=== PATIENT | female | born 1990 | race Caucasian/White ===

== ENCOUNTER 2016-07-05 18:39 | Emergency (ER) | payer SELFPAY ==
[2016-07-05 19:35] VITALS: BP 142/81; PULSE 67; RESP 18; TEMP 98.1
[2016-07-05] MEDS ORDERED: PENICILLIN VK 500MG STARTER 4 TAB BTL PO STA (20:04)
[2016-07-05] MEDS ORDERED: BUPIVACAINE (PF) 0.5% 30 ML VIAL SQ STA (20:04)
[2016-07-05] MEDS ORDERED: ACET/COD 300 MG/30 MG STARTER PACK 6 TAB BTL PO STA (20:04)
--- NOTE | 2016-07-05 20:05 | ED ---
ENT HPI - General Chief complaint: Dental/Oral Stated complaint: Tooth pain Time Seen by Provider: 07/05/16 19:55 Source: patient, RN notes reviewed, old records reviewed Mode of arrival: ambulatory Limitations: no limitations - History of Present Illness Initial comments: is a 18-year-old feel a chief complaint of left upper molar dental pain for approximately 3 days. Patient reports the pain is unbearable. She states that she recently switched insurance and is currently searching for a dentist. She states that she has noticed some swelling in feels like some irritation around the gum around the back molar. She is able to open and close her mouth. Patient denies any recent fever, chills, shortness of breath, chest pain, back pain, abdominal pain, nausea vomiting, numbness or tingling, dysuria or hematuria, constipation or diarrhea, headaches or visual changes, or any other current symptoms - Related Data Home Medications Medication Instructions Recorded Confirmed Citalopram Hydrobromide [CeleXA] 40 mg PO DAILY 03/02/16 07/05/16 Ranitidine HCl [Zantac] 150 mg PO BID 03/02/16 07/05/16 ALPRAZolam [Xanax] 0.25 mg PO DAILY PRN 07/05/16 07/05/16 Lisinopril [Zestril] 2.5 mg PO DAILY 07/05/16 07/05/16 Previous Rx's Medication Instructions Recorded Acetaminophen-Codeine 300-30mg 1 tab PO Q4H PRN #20 tablet 03/02/16 [Tylenol #3] Acetaminophen-Codeine 300-30mg 1 tab PO Q6H PRN #12 tablet 07/05/16 [Tylenol #3] Penicillin V Potassium [Pen Vee K] 500 mg PO QID #40 tab 07/05/16 Allergies Allergy/AdvReac Type Severity Reaction Status Date / Time No Known Allergies Allergy Verified 07/05/16 20:26 Review of Systems ROS Statement: Those systems with pertinent positive or pertinent negative responses have been documented in the HPI. ROS Other: All systems not noted in ROS Statement are negative. Past Medical History Past Medical History: GERD/Reflux Additional Past Medical History / Comment(s): PCOS History of Any Multi-Drug Resistant Organisms: None Reported Past Surgical History: No Surgical Hx Reported Past Psychological History: Depression Smoking Status: Current every day smoker Past Alcohol Use History: Occasional Past Drug Use History: None Reported General Exam Limitations: no limitations General appearance: alert, in no apparent distress Head exam: Present: atraumatic, normocephalic, normal inspection Eye exam: Present: normal appearance, PERRL, EOMI. Absent: scleral icterus, conjunctival injection, periorbital swelling ENT exam: Present: normal exam, normal oropharynx (Irritation around tooth #15.) , mucous membranes moist Neck exam: Present: normal inspection. Absent: tenderness, meningismus, lymphadenopathy Respiratory exam: Present: normal lung sounds bilaterally. Absent: respiratory distress, wheezes, rales, rhonchi, stridor Cardiovascular Exam: Present: regular rate, normal rhythm, normal heart sounds. Absent: systolic murmur, diastolic murmur, rubs, gallop, clicks GI/Abdominal exam: Present: soft, normal bowel sounds. Absent: distended, tenderness, guarding, rebound, rigid Extremities exam: Present: normal inspection, full ROM, normal capillary refill. Absent: tenderness, pedal edema, joint swelling, calf tenderness Back exam: Present: normal inspection Neurological exam: Present: alert, oriented X3, CN II-XII intact Psychiatric exam: Present: normal affect, normal mood Skin exam: Present: warm, dry, intact, normal color. Absent: rash Course Vital Signs 07/05/16 19:32 Temperature 98.1 F Pulse Rate 67 Respiratory 18 Rate Blood Pressure 142/81 O2 Sat by Pulse 97 Oximetry Procedures - Nerve Block Consent Obtained: verbal consent Local Anesthetic Used: Marcaine 0.5% Side: left Intraoral Nerve Block: superior alveolar Procedure Successful: Yes Complications: none Patient Tolerated Procedure: well, no complications Medical Decision Making - Medical Decision Making Patient is a 26 ear old female with chief complaint of left upper molar pain for 3 days. Patient shows signs of irritation around tooth 15, no signs of abscess. Patient will be placed on pen v k, and tylenol 3. Patient understands she needs to follow up with dentist. Patient given dental clinic instructions. Patient understands treatment plan and will comply. Patient given starter pack of both pain medicine and antibiotic. Disposition Clinical Impression: Pain, dental Disposition: HOME SELF-CARE Condition: Good Instructions: Toothache (ED) Additional Instructions: [facility] [address], [place] [address] [phone] (existing clients only) For new clients: [phone] 1st consult: $50 (includes Xrays) Usually 30% less then private dentist for visits after. [employer] Have to pay $50 for Xrays anmd rest is covered. [phone] Prescriptions: Acetaminophen-Codeine 300-30mg [Tylenol #3] 1 tab PO Q6H PRN #12 tablet PRN Reason: Pain Penicillin V Potassium [Pen Vee K] 500 mg PO QID #40 tab Referrals: Susan Palacios III, MD [Primary Care Provider] - 1-2 days Time of Disposition: 20:30
== END 2016-07-05 20:38 | disposition home or self-care (01) ==
LOC: EC 18:39
DX: K08.89 Other specified disorders of teeth and supporting structures (principal); K21.9 Gastro-esophageal reflux disease without esophagitis; F32.9 Major depressive disorder, single episode, unspecified; F17.200 Nicotine dependence, unspecified, uncomplicated; Z79.899 Other long term (current) drug therapy
CPT/HCPCS: 64400; 99283

== ENCOUNTER → 2017-09-28 | Outpatient (CLI) | payer OTHER | END | disposition home or self-care (01) | LOC: RADUSWWP 16:09 | PROVIDERS: ATTEND Obstetrics & Gynecology | DX: R10.2 Pelvic and perineal pain (principal); Z53.9 Procedure and treatment not carried out, unspecified reason ==

== ENCOUNTER → 2017-10-05 | Outpatient (CLI) | payer OTHER ==
--- NOTE | 2017-10-06 08:50 | US ---
EXAMINATION TYPE: US pelvic complete DATE OF EXAM: 10/05/2017 COMPARISON: NONE CLINICAL HISTORY: R10.2 PELVIC PAIN. Bilateral pelvic pain x 3 months, irregular cycles, PCOS, TECHNIQUE: TA. Transabdominal sonographic images of the pelvis were acquired. Date of LMP: 3 months ago EXAM MEASUREMENTS: Uterus: 6.3 x 4.2 x 3.4 cm Endometrial Stripe: 0.6 cm Right Ovary: 4.1 x 1.8 x 2.0 cm Left Ovary: 3.3 x 2.0 x 2.0 cm large body habitus limits exam 1. Uterus: Anteverted wnl 2. Endometrium: wnl 3. Right Ovary: wnl 4. Left Ovary: wnl 5. Bilateral Adnexa: wnl 6. Posterior cul-de-sac: wnl Urinary bladder appears unremarkable. IMPRESSION: 1. Unremarkable pelvic ultrasound.
== END | disposition home or self-care (01) ==
LOC: RADUSWWP 16:00
PROVIDERS: ATTEND Obstetrics & Gynecology
DX: N91.2 Amenorrhea, unspecified (principal); R10.2 Pelvic and perineal pain
CPT/HCPCS: 76856

== ENCOUNTER 2017-12-04 08:40 | Observation (INO) | payer OTHER ==
[2017-12-04] MEDS ORDERED: methylPREDNISolone SOD SUCCI 125 MG/2 ML VIAL IV STA (08:50)
[2017-12-04] MEDS ORDERED: IPRATROPIUM-ALBUTEROL 3 ML NEB INHALATION STA (08:50)
--- NOTE | 2017-12-04 08:52 | ED ---
SOB HPI - General Source: patient, RN notes reviewed Mode of arrival: ambulatory Limitations: no limitations <Johan Chavez - Last Filed: 12/04/17 10:12> <Evens Rodríguez - Last Filed: 12/04/17 10:40> - General Chief Complaint: Shortness of Breath Stated Complaint: Diff Breathing Time Seen by Provider: 12/04/17 08:45 - History of Present Illness Initial Comments: This is a 27-year-old female presents emergency Department chief complaint of shortness of breath. Patient states this has been going on for several weeks she was initially seen at [facility] urgent care is given Augmentin and albuterol treatments. She states initially was getting better but now has gotten worse with a productive cough and shortness of breath. She states that she has been wheezing at home. Patient is a smoker but states she has not smoked in a while because of her shortness of breath. She denies any long distance traveling no leg pain no leg swelling. She states she has had a large amount nasal congestion which is worsened by going to a local fair. Patient denies any sick contacts has normal drug ALLERGIES. No history of lung disease. (Johan Chavez) - Related Data Home Medications Medication Instructions Recorded Confirmed Citalopram Hydrobromide [CeleXA] 40 mg PO DAILY 03/02/16 12/04/17 Lisinopril [Zestril] 2.5 mg PO DAILY 07/05/16 12/04/17 Albuterol Nebulized [Ventolin 2.5 mg INHALATION RT-QID PRN 12/04/17 12/04/17 Nebulized] D-Methorphan/PE/Acetaminophen 2 cap PO Q6H PRN 12/04/17 12/04/17 [Vicks Dayquil Liquicaps] Phentermine HCl [Adipex-P] 37.5 mg PO QAM 12/04/17 12/04/17 Allergies Allergy/AdvReac Type Severity Reaction Status Date / Time No Known Allergies Allergy Verified 12/04/17 09:01 Review of Systems ROS Other: All systems not noted in ROS Statement are negative. <Johan Chavez - Last Filed: 12/04/17 10:12> ROS Other: All systems not noted in ROS Statement are negative. <Evens Rodríguez - Last Filed: 12/04/17 10:40> ROS Statement: Those systems with pertinent positive or pertinent negative responses have been documented in the HPI. Past Medical History Past Medical History: GERD/Reflux Additional Past Medical History / Comment(s): PCOS History of Any Multi-Drug Resistant Organisms: None Reported Past Surgical History: No Surgical Hx Reported Additional Past Surgical History / Comment(s): wisdom teeth removal Past Psychological History: Depression Smoking Status: Current every day smoker Past Alcohol Use History: Occasional Past Drug Use History: None Reported <Johan Chavez - Last Filed: 12/04/17 10:12> General Exam Limitations: no limitations General appearance: alert, in no apparent distress Head exam: Present: atraumatic, normocephalic, normal inspection Eye exam: Present: normal appearance, PERRL, EOMI. Absent: scleral icterus, conjunctival injection, periorbital swelling ENT exam: Present: normal exam, normal oropharynx, mucous membranes moist, TM's normal bilaterally, normal external ear exam Neck exam: Present: normal inspection. Absent: tenderness, meningismus, lymphadenopathy Respiratory exam: Present: wheezes, rhonchi. Absent: normal lung sounds bilaterally, respiratory distress, rales, stridor Cardiovascular Exam: Present: regular rate, normal rhythm, normal heart sounds. Absent: systolic murmur, diastolic murmur, rubs, gallop, clicks Neurological exam: Present: alert, oriented X3, CN II-XII intact Skin exam: Present: warm, dry, intact, normal color. Absent: rash <Johan Chavez - Last Filed: 12/04/17 10:12> Course <Johan Chavez - Last Filed: 12/04/17 10:12> <Evens Rodríguez - Last Filed: 12/04/17 10:40> Vital Signs 12/04/17 12/04/17 12/04/17 08:42 08:49 09:33 Temperature 98.5 F Pulse Rate 104 H 80 Respiratory 20 18 Rate Blood Pressure 149/102 O2 Sat by Pulse 94 L Oximetry 12/04/17 09:46 Temperature Pulse Rate 86 Respiratory Rate Blood Pressure O2 Sat by Pulse Oximetry - Reevaluation(s) Reevaluation #1: 12/04/17 10:39 I personally saw and examined the patient and reviewed and agree with the PA findings including all diagnostic interpretations and treatment plans is written was otherwise stated. She did demonstrate evidence of diffuse wheezing she's been having difficulty breathing for past several weeks. She was on antibiotics and locations. I did discuss case with Dr. Franks. Patient be admitted for inpatient treatment. Additionally the patient is a smoker she has smoked about one half pack per day headache ulcer on the need to quit smoking. The entire encounter lasting 4.5 minutes. (Evens Rodríguez) Medical Decision Making - Lab Data Result diagrams: 12/04/17 09:00 12/04/17 09:00 <Johan Chavez - Last Filed: 12/04/17 10:12> - Lab Data Result diagrams: 12/04/17 09:00 12/04/17 09:00 <Evens Rodríguez - Last Filed: 12/04/17 10:40> - Lab Data Lab Results 12/04/17 12/04/17 Range/Units 09:00 09:00 WBC 13.0 H (3.8-10.6) k/uL RBC 4.87 (3.80-5.40) m/uL Hgb 14.0 (11.4-16.0) gm/dL Hct 43.3 (34.0-46.0) % MCV 89.0 (80.0-100.0) fL MCH 28.8 (25.0-35.0) pg MCHC 32.4 (31.0-37.0) g/dL RDW 14.4 (11.5-15.5) % Plt Count 300 (150-450) k/uL Neutrophils % 69 % Lymphocytes % 15 % Monocytes % 6 % Eosinophils % 9 % Basophils % 0 % Neutrophils # 8.9 H (1.3-7.7) k/uL Lymphocytes # 1.9 (1.0-4.8) k/uL Monocytes # 0.8 (0-1.0) k/uL Eosinophils # 1.1 H (0-0.7) k/uL Basophils # 0.1 (0-0.2) k/uL Sodium 140 (137-145) mmol/L Potassium 4.3 (3.5-5.1) mmol/L Chloride 106 (98-107) mmol/L Carbon Dioxide 24 (22-30) mmol/L Anion Gap 10 mmol/L BUN 7 (7-17) mg/dL Creatinine 0.54 (0.52-1.04) mg/dL Est GFR (CKD-EPI)AfAm >90 (>60 ml/min/1.73 sqM) Est GFR (CKD-EPI)NonAf >90 (>60 ml/min/1.73 sqM) Glucose 118 H (74-99) mg/dL Calcium 9.4 (8.4-10.2) mg/dL Disposition <Johan Chavez - Last Filed: 12/04/17 10:12> <Evens Rodríguez - Last Filed: 12/04/17 10:40> Clinical Impression: Dyspnea, Acute bronchitis with bronchospasm, Failure of outpatient treatment Disposition: ADMITTED IP TO THIS HOSP Condition: Stable Referrals: Susan Palacios III, MD [Primary Care Provider] - 1-2 days
[2017-12-04 09:22] LABS: Basophils # (A) 0.1 k/uL (0-0.2); Basophils % (A) 0 %; Eosinophils # (A) 1.1 k/uL (0-0.7); Eosinophils % (A) 9 %; HCT 43.3 % (34.0-46.0); Lymphocytes # (A) 1.9 k/uL (1.0-4.8); Lymphocytes % (A) 15 %; MCH 28.8 pg (25.0-35.0); MCHC 32.4 g/dL (31.0-37.0); Mean Platelet Volume 7.3; Monocytes # (A) 0.8 k/uL (0-1.0); Monocytes % (A) 6 %; Neutrophils # (A) 8.9 k/uL (1.3-7.7); Neutrophils % (A) 69 %; Platelet Count 300 k/uL (150-450); RBC 4.87 m/uL (3.80-5.40); RDW 14.4 % (11.5-15.5)
[2017-12-04 09:29] LABS: Anion Gap 10 mmol/L; Blood Urea Nitrogen 7 mg/dL (7-17); Calcium 9.4 mg/dL (8.4-10.2); Carbon Dioxide 24 mmol/L (22-30); Chloride 106 mmol/L (98-107); Glucose 118 mg/dL (74-99); Potassium 4.3 mmol/L (3.5-5.1); Sodium 140 mmol/L (137-145)
--- NOTE | 2017-12-04 09:32 | XR ---
EXAMINATION TYPE: XR chest 2V DATE OF EXAM: 12/04/2017 COMPARISON: 03/02/2016 HISTORY: 27-year-old female cough/pain TECHNIQUE: PA and lateral views FINDINGS: The cardiomediastinal silhouette, aorta, and pulmonary vasculature are within normal limits. Mild per ibronchial cuffing is noted. No consolidation or pleural effusion. IMPRESSION: Peribronchial cuffing could represent bronchitis or asthma. Otherwise, no focal infiltrate.
[2017-12-04] MEDS ORDERED: cefTRIAXone IN SWFI 1,000 MG/10 ML SYRINGE IVP STA (10:16)
[2017-12-04] MEDS ORDERED: IPRATROPIUM-ALBUTEROL 3 ML NEB INHALATION PRN ×2 (10:16→13:40)
[2017-12-04] MEDS ORDERED: AZITHROMYCIN 500 MG in DEXTROSE 5% IN WATER 250 ML IVPB STA ×2 (10:16)
[2017-12-04] MEDS ORDERED: guaiFENesin SYRUP 100MG/5ML 200 MG/10 ML CUP PO PRN (13:35)
[2017-12-04] MEDS: IPRATROPIUM-ALBUTEROL 3 ML NEB INHALATION SCH ×2 (15:33→21:31)
[2017-12-04] MEDS: methylPREDNISolone SOD SUCCI 125 MG/2 ML VIAL IV SCH (16:12)
[2017-12-04] MEDS ORDERED: INSULIN ASPART 100 UNIT/ML 1 ML 10 ML VIAL SQ SCH (17:30)
[2017-12-04 17:37] LABS: Glucose,Whole Blood 188 mg/dL (75-99)
[2017-12-04] MEDS: ACETAMINOPHEN TAB 500 MG TAB PO PRN (18:10)
[2017-12-04] MEDS: INSULIN ASPART 100 UNIT/ML 1 ML 10 ML VIAL SQ SCH ×2 (18:11→21:19)
[2017-12-04] MEDS: FAMOTIDINE 20 MG TAB PO SCH (18:37)
[2017-12-04] MEDS ORDERED: TEMAZEPAM 15 MG CAP PO PRN (19:52)
[2017-12-04] MEDS ORDERED: ALPRAZolam 0.25 MG TAB PO PRN (19:52)
[2017-12-04] MEDS ORDERED: ACETAMINOPHEN PO PRN (19:53)
[2017-12-04] MEDS ORDERED: [UNRECOGNIZED DRUG - OTHER] PO PRN (19:53)
[2017-12-04] MEDS ORDERED: D METHORPHAN PO PRN (19:53)
[2017-12-04 21:08] LABS: Glucose,Whole Blood 228 mg/dL (75-99)
[2017-12-04] MEDS: HEPARIN SODIUM,PORCINE 5,000 UNIT/ML 1 ML VIAL SQ SCH (21:19)
[2017-12-04] MEDS: NICOTINE 14MG/24HR PATCH TRANSDERM SCH (21:19)
[2017-12-04] MEDS: SYMBICORT 160-4.5 MCG INHALER INHALATION SCH (21:31)
--- NOTE | 2017-12-04 21:58 | HP ---
HISTORY AND PHYSICAL CHIEF COMPLAINT: Shortness of breath and cough. HISTORY OF PRESENT ILLNESS: This 27-year-old woman with a past medical history of chronic bronchial asthma, GERD, being followed by Dr. Palacios in the outpatient setting was complaining of shortness of breath. The patient had shortness of breath for several days and the patient also taking antibiotics recently. Because of lack of improvement, the patient came to [facility] and admitted for further evaluation and treatment. The patient is also wheezing at home. In the ER, WBC elevated up to 11.3 and chest x-ray showed no evidence of any acute pneumonia, but bronchial cuffing was noted. There is no history of any fever, rigors or chills. No history of headache, loss of consciousness, seizures. PAST MEDICAL HISTORY: Bronchial asthma, history of GERD, history of polycystic ovarian syndrome. MEDICATIONS: Prior to admission include home medications are: 1. Zantac 150 mg p.o. b.i.d. 2. Adipex 37.5 mg p.o. q.h.s. 3. Zestril 2.5 mg p.o. daily. 4. Vicks 2 capsules q.6h p.r.n. 5. Celexa 40 mg p.o. daily. 6. Ventolin 2.5 q.i.d. p.r.n. ALLERGIES: None. FAMILY HISTORY: History of hypertension, borderline diabetes mellitus. SOCIAL HISTORY: History of smoking. No history of alcohol intake. REVIEW OF SYSTEMS: ENT: No diminished hearing or vision. CARDIOVASCULAR: No angina or palpitations. RESPIRATORY: As mentioned earlier. GI: No nausea or vomiting. : No dysuria or hematuria. Central nervous system: No numbness or weakness. ALLERGY/IMMUNOLOGY: As mentioned earlier. Musculoskeletal: As mentioned earlier. HEMATOLOGY/ONCOLOGY: No history or anemia. Endocrine: No history of diabetes or hypothyroidism. CONSTITUTIONAL: As mentioned earlier. Dermatology: Negative. Rheumatology: Negative. Psychiatry: As mentioned earlier. PHYSICAL EXAM: Alert and oriented times three. Pulse is 110, blood pressure 176/77, respiration 20, temperature 99.1, pulse ox 98% on 2 L. HEENT: Conjunctivae normal. Oral mucosa moist. Neck is no jugular venous distention. No carotid bruit. No lymph node enlargement. CARDIOVASCULAR: S1, S2. RESPIRATORY: Breath sounds diminished in the bases. Bilateral scattered rhonchi and crackles. ABDOMEN: Soft, nontender. No mass palpable. Legs no edema and no swelling. NERVOUS SYSTEM: Higher functions as mentioned earlier. Moves all four extremities. No focal motor or sensory deficits. Lymphatics: No lymph nodes palpable in the neck , axillae or groin. Skin: No ulcer, no rash. No bleeding. LABS: WBC 13.3, hemoglobin is 14. ASSESSMENT: 1. Acute bronchial asthma, acute exacerbation with acute purulent tracheobronchitis with failure of outpatient treatment. 2. Gastroesophageal reflux disease. 3. Polycystic ovarian syndrome. 4. Depression. 5. History of nicotine dependence. RECOMMENDATIONS AND DISCUSSION: In this 27-year-old woman who presented with multiple medical issues, at this time, I recommend to continue current medications, management, continue broad-spectrum IV antibiotics. I would also recommend IV steroids and monitor blood sugars closely. I would also recommend consultation with Dr. Miguel A pretty from [facility]. Prognosis guarded because of multiple complex medical issues. Further recommendations to follow. See orders for details. MMODL / IJN: [id number] / [id number]
[2017-12-05] MEDS: methylPREDNISolone SOD SUCCI 125 MG/2 ML VIAL IV SCH ×2 (00:49→07:47)
[2017-12-05] MEDS: ACETAMINOPHEN TAB 500 MG TAB PO PRN (00:53)
[2017-12-05 01:13] LABS: Hemoglobin A1C 6.2 % (4.0-6.0)
[2017-12-05 05:58] VITALS: BP 113/60; RESP 15; TEMP 96.8
[2017-12-05] MEDS: SYMBICORT 160-4.5 MCG INHALER INHALATION SCH (07:16)
[2017-12-05] MEDS: IPRATROPIUM-ALBUTEROL 3 ML NEB INHALATION SCH ×2 (07:16→11:33)
[2017-12-05] MEDS ORDERED: PANTOPRAZOLE 40 MG TABLET PO SCH (07:30)
[2017-12-05 07:31] LABS: Glucose,Whole Blood 165 mg/dL (75-99)
[2017-12-05] MEDS: INSULIN ASPART 100 UNIT/ML 1 ML 10 ML VIAL SQ SCH ×2 (07:46→12:25)
[2017-12-05] MEDS: HEPARIN SODIUM,PORCINE 5,000 UNIT/ML 1 ML VIAL SQ SCH (07:47)
[2017-12-05] MEDS: FAMOTIDINE 20 MG TAB PO SCH (07:48)
[2017-12-05] MEDS: NICOTINE 14MG/24HR PATCH TRANSDERM SCH (07:49)
[2017-12-05] MEDS ORDERED: cefTRIAXone IN SWFI 1,000 MG/10 ML SYRINGE IVP SCH (09:00)
[2017-12-05] MEDS ORDERED: Phentermine Hcl [Adipex-P] PO SCH (09:00)
[2017-12-05] MEDS ORDERED: AZITHROMYCIN 500 MG TAB PO SCH (09:00)
[2017-12-05] MEDS ORDERED: CITALOPRAM HYDROBROMIDE 20 MG TAB PO SCH (09:00)
[2017-12-05] MEDS ORDERED: LISINOPRIL 2.5 MG TAB PO SCH (09:00)
[2017-12-05 09:46] LABS: Anion Gap 12 mmol/L; Blood Urea Nitrogen 8 mg/dL (7-17); Calcium 9.7 mg/dL (8.4-10.2); Carbon Dioxide 20 mmol/L (22-30); Chloride 107 mmol/L (98-107); Glucose 218 mg/dL (74-99); Potassium 4.4 mmol/L (3.5-5.1); Sodium 139 mmol/L (137-145)
[2017-12-05 11:04] LABS: Basophils % (A) 0 %; Eosinophils % (A) 0 %; HCT 43.8 % (34.0-46.0); HGB 14.1 gm/dL (11.4-16.0); Lymphocytes % (A) 8 %; MCH 29.8 pg (25.0-35.0); MCHC 32.3 g/dL (31.0-37.0); MCV 92.4 fL (80.0-100.0); Mean Platelet Volume 7.8; Monocytes # (A) 0.8 k/uL (0-1.0); Monocytes % (A) 3 %; Neutrophils % (A) 89 %; Platelet Count 292 k/uL (150-450); RBC 4.74 m/uL (3.80-5.40); RDW 14.6 % (11.5-15.5)
[2017-12-05 11:06] LABS: WBC 25.9 k/uL (3.8-10.6)
[2017-12-05 11:37] VITALS: PULSE 92
[2017-12-05 11:55] LABS: Glucose,Whole Blood 240 mg/dL (75-99)
[2017-12-05] MEDS ORDERED: methylPREDNISolone ACETATE 80 MG/ML 1 ML VIAL IM STA (12:24)
--- NOTE | 2017-12-05 13:07 | P.CNPUL ---
History of Present Illness Consult date: 12/05/17 Requesting physician: Ernesto Becerra Reason for consult: cough History of present illness: Manasa is a 27-year-old white female patient of Dr. Palacios, presented to the emergency department on 12/04/2017 for evaluation of shortness of breath, wheezing, and persistent cough. Patient had upper respiratory infection 3 weeks ago, and is treating on outpatient basis initially at an urgent clinic, [facility], with a course of oral Augmentin and albuterol treatments. Her symptoms initially got better, patient still has a persistent cough, shortness of breath, wheezing. Patient is a current smoker, however has not smoked since the onset of her symptoms. The medical history includes hypertension, GERD/ reflux, depression, PCOS. Denies history of chronic lung disease, denies history of asthma. Chest x-ray was completed and showed her bronchial cuffing representing bronchitis. No focal infiltrate. Patient has been afebrile, she is on supplemental oxygen, room air pulse ox is 94%, slightly tachycardic at times, in the low 100s BPM. Hemodynamically stable. On presentation lab work showed mild leukocytosis, WBC of 13.0, hemoglobin of 14.0, electrolytes and renal profile within normal limits. Today's labs show increase of WBC 25.9, likely related to initiation of IV steroids. Patient denies any fever or chills , reports breathing easier, less bronchospastic, exam reveals diffuse wheezes, however this is reportedly improved from her admission. Was placed on empiric antibiotics in the form of Zithromax and Rocephin, she is on Symbicort, and Robitussin cough syrup. She is on nebulized bronchodilators, and nicotine patch. She reports feeling better today, she has a small child and she would like to go home to continue recovering at home. From our standpoint patient is stable for discharge home on outpatient course of prednisone starting at 50 mg, we will stop the antibiotics, will provide the patient with Ventolin inhaler, she has nebulized treatments at home. Patient was advised to follow-up on as- needed basis with Dr. Grady. Review of Systems All systems: negative Constitutional: Denies chills, Denies fever Eyes: denies blurred vision, denies pain Ears, nose, mouth and throat: Denies headache, Denies sore throat Cardiovascular: Denies chest pain, Denies shortness of breath Respiratory: Reports cough with sputum, Reports dyspnea, Reports wheezing, Denies cough Gastrointestinal: Denies abdominal pain, Denies diarrhea, Denies nausea, Denies vomiting Genitourinary: Denies dysuria, Denies hematuria Musculoskeletal: Denies myalgias Integumentary: Denies pruritus, Denies rash Neurological: Denies numbness, Denies weakness Psychiatric: Denies anxiety, Denies depression Endocrine: Denies fatigue, Denies weight change Past Medical History Past Medical History: GERD/Reflux Additional Past Medical History / Comment(s): PCOS, pne vaccine in past not sure of date- unable to verify date a time of admit History of Any Multi-Drug Resistant Organisms: None Reported Past Surgical History: No Surgical Hx Reported Additional Past Surgical History / Comment(s): wisdom teeth removal Past Anesthesia/Blood Transfusion Reactions: No Reported Reaction Additional Past Anesthesia/Blood Transfusion Reaction / Comment(s): clausterphobia Smoking Status: Current every day smoker - Past Family History Father Family Medical History: Hypertension Mother Family Medical History: Hypertension Additional Family Medical History / Comment(s): boarderline dm Medications and Allergies Home Medications Medication Instructions Recorded Confirmed Type Citalopram Hydrobromide [CeleXA] 40 mg PO DAILY 03/02/16 12/04/17 History Lisinopril [Zestril] 2.5 mg PO DAILY 07/05/16 12/04/17 History Albuterol Nebulized [Ventolin 2.5 mg INHALATION RT-QID PRN 12/04/17 12/04/17 History Nebulized] D-Methorphan/PE/Acetaminophen 2 cap PO Q6H PRN 12/04/17 12/04/17 History [Vicks Dayquil Liquicaps] Phentermine HCl [Adipex-P] 37.5 mg PO QAM 12/04/17 12/04/17 History Ranitidine HCl [Zantac] 150 mg PO BID 12/04/17 12/04/17 History Albuterol Inhaler [Ventolin Hfa 1 - 2 puff INHALATION RT-Q6H PRN 12/05/17 Rx Inhaler] 30 Days #1 inhaler predniSONE 10 mg PO DAILY 20 Days #44 tab 12/05/17 Rx Allergies Allergy/AdvReac Type Severity Reaction Status Date / Time No Known Allergies Allergy Verified 12/04/17 09:01 Physical Exam Vitals: Vital Signs Temp Pulse Pulse Resp BP BP Pulse Ox 12/05/17 11:47 92 12/05/17 11:33 92 12/05/17 07:29 80 12/05/17 07:16 80 12/05/17 05:57 96.8 F L 80 15 113/60 92 L 12/04/17 23:00 97.1 F L 89 18 136/77 93 L 12/04/17 21:42 96 12/04/17 21:32 90 12/04/17 16:30 110 H 12/04/17 15:35 99.1 F 110 H 20 176/77 90 L 12/04/17 15:00 98.2 F 102 H 20 153/78 93 L 12/04/17 13:48 110 H 12/04/17 13:37 106 H Intake and Output 12/04/17 12/05/17 12/05/17 22:59 06:59 14:59 Intake Total 240 Balance 240 Intake: Oral 240 Other: # Voids 1 1 Weight 114.305 kg GENERAL EXAM: Alert, pleasant, 27-year-old obese white female, comfortable in no apparent distress. HEAD: Normocephalic/atraumatic. EYES: Normal reaction of pupils, equal size. Conjunctiva pink, sclera white. NOSE: Clear with pink turbinates. THROAT: No erythema or exudates. NECK: No masses, no JVD, no thyroid enlargement, no adenopathy. CHEST: No chest wall deformity. Symmetrical expansion. LUNGS: Equal air entry with diffuse wheezes, but good air entry noted bilaterally. CVS: Regular rate and rhythm, normal S1 and S2, no gallops, no murmurs, no rubs ABDOMEN: Soft, nontender. No hepatosplenomegaly, normal bowel sounds, no guarding or rigidity. EXTREMITIES: No clubbing, no edema, no cyanosis, 2+ pulses and upper and lower extremities. MUSCULOSKELETAL: Muscle strength and tone normal. SPINE: No scoliosis or deformity SKIN: No rashes CENTRAL NERVOUS SYSTEM: Alert and oriented -3. No focal deficits, tone is normal in all 4 extremities. PSYCHIATRIC: Alert and oriented -3. Appropriate affect. Intact judgment and insight. Results - Laboratory Findings CBC and BMP: 12/05/17 09:04 12/05/17 09:04 Abnormal lab findings: Abnormal Labs 12/04/17 12/04/17 12/04/17 09:00 09:00 09:00 WBC 13.0 H Neutrophils # 8.9 H Eosinophils # 1.1 H Carbon Dioxide Creatinine Glucose 118 H POC Glucose (mg/dL) Hemoglobin A1c 6.2 H 12/04/17 12/04/17 12/05/17 17:26 21:05 07:04 WBC Neutrophils # Eosinophils # Carbon Dioxide Creatinine Glucose POC Glucose (mg/dL) 188 H 228 H 165 H Hemoglobin A1c 12/05/17 12/05/17 12/05/17 09:04 09:04 11:46 WBC 25.9 H* Neutrophils # 23.0 H Eosinophils # Carbon Dioxide 20 L Creatinine 0.51 L Glucose 218 H POC Glucose (mg/dL) 240 H Hemoglobin A1c - Diagnostic Findings Chest x-ray: report reviewed, image reviewed Assessment and Plan Plan: Assessment: #1. Postinfectious or postviral persistent cough #2. Recent upper respiratory infection, treating an outpatient course of antibiotics #3. Dyspnea, coughing, wheezing related to the above #4. Hypertension #5. Morbid obesity #6. PCOS #7. Depression #8. Current smoker Plan: Patient is stable, improving. Her symptoms are related to postinfectious or postviral cough, and not related to an infectious process, but rather to inflammation. Patient did complete a course of Augmentin, and we can stop her Zithromax and Rocephin. Nebulized bronchodilators is probably not particularly helpful, and can be continued on as-needed basis. Patient has a small child at home, and she is requesting to be discharged home today so she can continue her recovery, overall patient reports improvement of her symptoms since admission. Continue the patient on low-dose of Depo-Medrol 80 mg intramuscularly, and she can be sent home on prednisone taper starting at 50 mg. She'll he has a nebulizer machine at home with albuterol, we will give her prescription of Ventolin inhaler as needed. She was given the option of following up with Dr. Grady on as-needed basis. Thank you for this consultation. I performed a history & physical examination of the patient and discussed their management with my nurse practitioner, Viky Mei. I reviewed the nurse practitioner's note and agree with the documented findings and plan of care. Lung sounds are positive for diffuse expiratory wheezes, good air entry noted bilaterally. The findings and the impression was discussed with the patient. I attest to the documentation by the nurse practitioner. Time with Patient: Greater than 30
--- NOTE | 2017-12-05 15:01 | XR ---
EXAMINATION TYPE: XR chest 2V DATE OF EXAM: 12/05/2017 COMPARISON: 12/04/2017 HISTORY: Shortness of breath. Follow-up for pneumonia. TECHNIQUE: Frontal and lateral views of the chest are obtained. FINDINGS: There is no focal air space opacity, pleural effusion, or pneumothorax seen. The cardiac silhouette size is within normal limits. The osseous structures are intact. The previously seen per ibronchial cuffing is less conspicuous on today's examination. IMPRESSION: No focal consolidation to suggest pneumonia. Decreased conspicuity the previously seen p eribronchial cuffing.
--- NOTE | 2017-12-05 20:26 | DS ---
DISCHARGE SUMMARY FINAL DIAGNOSES: 1. Acute bronchial asthma acute exacerbation with acute purulent tracheobronchitis with failure of outpatient treatment. 2. Gastroesophageal reflux disease. 3. Polycystic ovarian syndrome. 4. Depression. 5. History of nicotine dependence. DISCHARGE DISPOSITION: The patient will be discharged in stable condition with guarded prognosis. HISTORY OF PRESENT ILLNESS: This 27-year-old woman with a past history of multiple medical problems was admitted with bronchial asthma acute exacerbation. The patient was seen by Dr. Grady. Bronchodilators were given. Patient improved significantly. On exam, vitals are stable. Cardiovascular: S1, S2 Respiratory: A few scattered rhonchi. Abdomen: Soft. Nervous System: No focal deficits. DISCHARGE ADVICE: 1. Diet is cardiac. 2. Activities limited until followup. 3. Follow up with Dr. Palacios in 2 to 3 days. 4. Follow up with Dr. Grady as advised. MEDICATIONS: Medications will be: 1. Albuterol 2.5 nebulization q.i.d. and p.r.n. 2. Celexa 40 mg p.o. daily. 3. D-methorphan 2 q.6h. 4. Zestril 2.5 mg daily. 5. Adipex 37 daily. 6. Zantac 150 mg p.o. b.i.d. 7. Albuterol p.r.n. 8. Prednisone taper 50 mg for 4 days, 40 for for 4 days, 30 for 4 days, 20 for 4 days, 10 for 4 days and continue. 9. Symbicort 160/4.5 two puffs b.i.d. 10.Ceftin 500 mg p.o. b.i.d. for 5 days. MMODL / IJN: [id number] /
== END 2017-12-05 14:32 | disposition home or self-care (01) ==
LOC: EC 08:40 → 4MS4W 10:37 → INTOOBSV 10:37 → 4MS4W 14:54
PROVIDERS: ADMIT Hospitalist; ATTEND Hospitalist
DX: J45.901 Unspecified asthma with (acute) exacerbation (principal); J20.9 Acute bronchitis, unspecified; I10 Essential (primary) hypertension; K21.9 Gastro-esophageal reflux disease without esophagitis; E28.2 Polycystic ovarian syndrome; F32.9 Major depressive disorder, single episode, unspecified; F17.210 Nicotine dependence, cigarettes, uncomplicated; Z68.41 Body mass index [BMI] 40.0-44.9, adult; E66.01 Morbid (severe) obesity due to excess calories; Z79.899 Other long term (current) drug therapy; Z82.49 Family history of ischemic heart disease and other diseases of the circulatory system
CPT/HCPCS: 99285 ×2; 96365 ×2; 96366 ×2; 96375 ×3; 96376 ×2; 96372 ×2; 36415; 94640 ×4; 80048 ×2; 85025 ×2; 87040; 83036; 71046 ×2; G0378 ×2; J1040; J1644 ×2; J2930 ×2; J0456; J0696 ×2

== ENCOUNTER 2018-07-23 20:23 | Emergency (ER) | payer OTHER ==
[2018-07-23 20:46] VITALS: TEMP 98.6
[2018-07-23] MEDS ORDERED: SODIUM CHLORIDE 0.9% 1,000 ML IV STA (22:03)
--- NOTE | 2018-07-23 22:09 | ED ---
Arrhythmia/Palpitations HPI - General Chief Complaint: Arrhythmia/Palpitations Stated Complaint: Heart fluttering Time Seen by Provider: 07/23/18 21:22 Source: patient Mode of arrival: ambulatory Limitations: no limitations - History of Present Illness Initial Comments: Manasa is a previously healthy 28-year-old female who presents the emergency department today for evaluation of 1 week of palpitations. Patient reports that over approximately the previous week she's experienced a feeling of her heart racing intermittently. She reports that this occurs without provocation, it occurs at rest as well as with activity. She reports at times when it occurs she does feel that she has trouble catching her breath but at other times it doesn't bother her at all. She denies any chest pain lightheadedness or near- syncope. She denies any cardiac history. She denies any history of DVT or PE. She is not on any estrogen supplementations. The patient describes the sensation as feeling as though her heart is skipping beats. - Related Data Home Medications Medication Instructions Recorded Confirmed Desvenlafaxine Succinate [Pristiq] 50 mg PO DAILY 07/23/18 07/23/18 Lisinopril [Zestril] 2.5 mg PO DAILY 07/23/18 07/23/18 Naproxen 500 mg PO BID 07/23/18 07/23/18 Omeprazole [PriLOSEC] 20 mg PO DAILY 07/23/18 07/23/18 Allergies Allergy/AdvReac Type Severity Reaction Status Date / Time No Known Allergies Allergy Verified 07/23/18 22:28 Review of Systems ROS Statement: Those systems with pertinent positive or pertinent negative responses have been documented in the HPI. ROS Other: All systems not noted in ROS Statement are negative. Past Medical History Past Medical History: GERD/Reflux Additional Past Medical History / Comment(s): PCOS History of Any Multi-Drug Resistant Organisms: None Reported Past Surgical History: No Surgical Hx Reported Additional Past Surgical History / Comment(s): wisdom teeth removal Past Anesthesia/Blood Transfusion Reactions: No Reported Reaction Additional Past Anesthesia/Blood Transfusion Reaction / Comment(s): clausterphobia Past Psychological History: Depression Smoking Status: Former smoker Past Alcohol Use History: Occasional Past Drug Use History: None Reported - Past Family History Father Family Medical History: Hypertension Mother Family Medical History: Hypertension Additional Family Medical History / Comment(s): boarderline radha General Exam - General Exam Comments Initial Comments: Physical Exam GENERAL: Obese. Patient is well-developed and well-nourished. Patient is nontoxic and well-hydrated and is in no distress. HENT: Normocephalic, Atraumatic. EYES: PERRL, EOMI PULMONARY: Unlabored respirations. No audible rales rhonchi or wheezing was noted. CARDIOVASCULAR: There is a regular rate and rhythm without any murmurs gallops or rubs. ABDOMEN: Soft and nontender with normal bowel sounds. SKIN: Skin is clear with no lesions or rashes and otherwise unremarkable. : Deferred NEUROLOGIC: Patient is alert and oriented x3. Moving all extremities spontaneously MUSCULOSKELETAL: Normal extremities with adequate strength and full range of motion. No lower extremity swelling or edema. No calf tenderness. PSYCHIATRIC: Normal psychiatric evaluation. Limitations: no limitations Limitations: no limitations Course Vital Signs 07/23/18 07/23/18 07/23/18 20:41 21:40 23:18 Temperature 98.6 F Pulse Rate 91 89 90 Respiratory 18 18 16 Rate Blood Pressure 146/88 148/93 131/80 O2 Sat by Pulse 96 98 96 Oximetry Medical Decision Making - Medical Decision Making Patient was seen and evaluated, history was obtained from the patient Patient with intermittent palpitations for 1 week duration without any chest pain, occasional shortness breath mildly hypertensive, heart rate in the 80s to 90s 0 risk factors for PE DVT, PERC & Wells negative EKG was ordered due to the complaint of palpitations EKG was obtained at 2126, EKG was interpreted by me EKG with a rate of 86 there is a P-wave before each QRS, rhythm is sinus there is a normal axis there are normal intervals, IN 162, curious 88, QTC 435. There is no evidence of acute ischemia infarction or arrhythmia on this EKG. Labs reveal hyperglycemia with a glucose of 170 no other significant abnormalities Labs results were discussed with the patient who expresses some relief. I did discuss with her dietary modifications to decrease palpitations including decreasing caffeine, chocolate and any stimulants or diet supplements. Patient expressed understanding and agreement with this plan. I advised the patient to follow up with her primary care physician by the end of the week for reevaluation. - Lab Data Result diagrams: 07/23/18 21:19 07/23/18 21:19 Lab Results 07/23/18 07/23/18 07/23/18 Range/Units 21:19 21:19 21:19 WBC 16.0 H (3.8-10.6) k/uL RBC 4.85 (3.80-5.40) m/uL Hgb 14.1 (11.4-16.0) gm/dL Hct 43.5 (34.0-46.0) % MCV 89.7 (80.0-100.0) fL MCH 29.1 (25.0-35.0) pg MCHC 32.5 (31.0-37.0) g/dL RDW 13.8 (11.5-15.5) % Plt Count 340 (150-450) k/uL Neutrophils % 63 % Lymphocytes % 26 % Monocytes % 6 % Eosinophils % 4 % Basophils % 1 % Neutrophils # 10.0 H (1.3-7.7) k/uL Lymphocytes # 4.1 (1.0-4.8) k/uL Monocytes # 0.9 (0-1.0) k/uL Eosinophils # 0.6 (0-0.7) k/uL Basophils # 0.1 (0-0.2) k/uL Sodium 139 (137-145) mmol/L Potassium 4.4 (3.5-5.1) mmol/L Chloride 102 (98-107) mmol/L Carbon Dioxide 27 (22-30) mmol/L Anion Gap 10 mmol/L BUN 13 (7-17) mg/dL Creatinine 0.72 (0.52-1.04) mg/dL Est GFR (CKD-EPI)AfAm >90 (>60 ml/min/1.73 sqM) Est GFR (CKD-EPI)NonAf >90 (>60 ml/min/1.73 sqM) Glucose 171 H (74-99) mg/dL Calcium 9.7 (8.4-10.2) mg/dL Magnesium 1.8 (1.6-2.3) mg/dL Total Bilirubin 0.3 (0.2-1.3) mg/dL AST 24 (14-36) U/L ALT 37 (9-52) U/L Alkaline Phosphatase 91 (38-126) U/L Troponin I <0.012 (0.000-0.034) ng/mL Total Protein 7.3 (6.3-8.2) g/dL Albumin 4.2 (3.5-5.0) g/dL TSH 3.230 (0.465-4.680) mIU/L Disposition Clinical Impression: Heart palpitations, Hyperglycemia Disposition: HOME SELF-CARE Condition: Good Instructions (If sedation given, give patient instructions): Heart Palpitations (ED) Is patient prescribed a controlled substance at d/c from ED?: No Referrals: Susan Palacios III, MD [Primary Care Provider] - 1-2 days
[2018-07-23 22:33] LABS: Basophils # (A) 0.1 k/uL (0-0.2); Basophils % (A) 1 %; Eosinophils # (A) 0.6 k/uL (0-0.7); Eosinophils % (A) 4 %; HCT 43.5 % (34.0-46.0); HGB 14.1 gm/dL (11.4-16.0); Lymphocytes # (A) 4.1 k/uL (1.0-4.8); Lymphocytes % (A) 26 %; MCH 29.1 pg (25.0-35.0); MCHC 32.5 g/dL (31.0-37.0); MCV 89.7 fL (80.0-100.0); Monocytes # (A) 0.9 k/uL (0-1.0); Monocytes % (A) 6 %; Neutrophils % (A) 63 %; Platelet Count 340 k/uL (150-450); RBC 4.85 m/uL (3.80-5.40); RDW 13.8 % (11.5-15.5)
[2018-07-23 22:41] LABS: ALT 37 U/L (9-52); AST 24 U/L (14-36); Albumin 4.2 g/dL (3.5-5.0); Alkaline Phosphatase 91 U/L (38-126); Anion Gap 10 mmol/L; Blood Urea Nitrogen 13 mg/dL (7-17); Calcium 9.7 mg/dL (8.4-10.2); Carbon Dioxide 27 mmol/L (22-30); Chloride 102 mmol/L (98-107); Glucose 171 mg/dL (74-99); Magnesium 1.8 mg/dL (1.6-2.3); Potassium 4.4 mmol/L (3.5-5.1); Sodium 139 mmol/L (137-145); Total Bilirubin 0.3 mg/dL (0.2-1.3); Total Protein 7.3 g/dL (6.3-8.2)
--- NOTE | 2018-07-23 22:49 | XR ---
EXAM: XR Chest, 2 Views CLINICAL HISTORY: dysrhythmia TECHNIQUE: Frontal and lateral views of the chest. COMPARISON: 12/05/2017 FINDINGS: Lungs: Mild right suprahilar peribronchial cuffing, similar to prior. No consolidation. Pleural space: Unremarkable. No pneumothorax. Heart: Unremarkable. No cardiomegaly. Mediastinum: Unremarkable. Bones/joints: No acute osseous abnormality. Tubes, lines and devices: Telemetry leads overlie the patient. IMPRESSION: No consolidation, significant pleural effusion, or pneumothorax.
[2018-07-23 23:20] VITALS: BP 131/80; PULSE 90; RESP 16
== END 2018-07-23 23:48 | disposition home or self-care (01) ==
LOC: EC 20:23
DX: R00.2 Palpitations (principal); R73.9 Hyperglycemia, unspecified; I10 Essential (primary) hypertension; K21.9 Gastro-esophageal reflux disease without esophagitis; F32.9 Major depressive disorder, single episode, unspecified; Z87.891 Personal history of nicotine dependence; Z79.1 Long term (current) use of non-steroidal anti-inflammatories (NSAID); Z79.899 Other long term (current) drug therapy
CPT/HCPCS: 36415; 71046; 80053; 83735; 84443; 84484; 85025; 93005; 96360; 99285

== ENCOUNTER → 2018-08-10 | Outpatient (CLI) | payer OTHER ==
--- NOTE | 2018-08-10 13:27 | ECHOF ---
Referral Reason:Palpitations R00.2 MEASUREMENTS -------- HEIGHT: 162.6 cm WEIGHT: 114.3 kg BP: RVIDd: 3.5 cm (< 3.3) IVSd: 1.2 cm (0.6 - 1.1) LVIDd: 3.9 cm (3.9 - 5.3) LVPWd: 1.4 cm (0.6 - 1.1) IVSs: 1.6 cm LVIDs: 2.5 cm LVPWs: 1.9 cm LAESV Index (A-L): 12.86 ml/m Ao Diam: 3.1 cm (2.0 - 3.7) AV Cusp: 1.8 cm (1.5 - 2.6) LA Diam: 3.3 cm (2.7 - 3.8) MV EXCURSION: 14.577 mm (> 18.000) MV EF SLOPE: 172 mm/s (70 - 150) EPSS: 0.7 cm MV E Sedrick: 0.89 m/s MV DecT: 226 ms MV A Sedrick: 0.59 m/s MV E/A Ratio: 1.51 RAP: 5.00 mmHg RVSP: 22.20 mmHg FINDINGS -------- Sinus rhythm. This was a technically good study. The left ventricular size is normal. There is mild concentric left ventricular hypertrophy. Overa ll left ventricular systolic function is normal with, an EF between 55 - 60 %. The right ventricle is mildly enlarged. The left atrial size is normal. The right atrial size is normal. The aortic valve is trileaflet and appears structurally normal. The mitral valve leaflets are mildly thickened. There is trace to mild mitral regurgitation. Trace tricuspid regurgitation present. The right ventricular systolic pressure, as measured by Dopp ler, is 22.20mmHg. There is no pulmonic regurgitation present. The aortic root size is normal. Normal inferior vena cava with normal inspiratory collapse consistent with estimated right atrial pre ssure of 5 mmHg. There is no pericardial effusion. CONCLUSIONS -------- 1. Sinus rhythm. 2. This was a technically good study. 3. The left ventricular size is normal. 4. There is mild concentric left ventricular hypertrophy. 5. Overall left ventricular systolic function is normal with, an EF between 55 - 60 %. 6. The right ventricle is mildly enlarged. 7. The left atrial size is normal. 8. The right atrial size is normal. 9. The aortic valve is trileaflet and appears structurally normal. 10. The mitral valve leaflets are mildly thickened. 11. There is trace to mild mitral regurgitation. 12. Trace tricuspid regurgitation present. 13. The right ventricular systolic pressure, as measured by Doppler, is 22.20mmHg. 14. There is no pulmonic regurgitation present. 15. The aortic root size is normal. 16. Normal inferior vena cava with normal inspiratory collapse consistent with estimated right atrial pressure of 5 mmHg. 17. There is no pericardial effusion. GEOLOGIC TECHNICIAN: Kiera Vickers RDCS
== END | disposition home or self-care (01) ==
LOC: RADECHMAIN 11:12
PROVIDERS: ATTEND Nurse Practitioner Family
DX: I34.0 Nonrheumatic mitral (valve) insufficiency (principal); I51.7 Cardiomegaly; I49.3 Ventricular premature depolarization; R00.0 Tachycardia, unspecified; R00.8 Other abnormalities of heart beat
CPT/HCPCS: 93270; 93271; 93306

== ENCOUNTER → 2018-11-07 | Outpatient (CLI) | payer OTHER ==
--- NOTE | 2018-11-08 07:49 | XR ---
EXAMINATION TYPE: XR knee complete LT DATE OF EXAM: 11/07/2018 CLINICAL HISTORY: 3 views of the left knee were obtained TECHNIQUE: Three views of the left knee are obtained. COMPARISON: None. FINDINGS: There is no acute fracture/dislocation evident in left knee. The tri-compartment joint sp aces demonstrate small marginal osteophytes. The overlying soft tissue appears unremarkable. IMPRESSION: There is no acute fracture or dislocation in the left knee. There are mild tricompartmen dasha arthropathy.
== END | disposition home or self-care (01) ==
LOC: RADXRMAIN 15:05
PROVIDERS: ATTEND Emergency Medicine
DX: M17.12 Unilateral primary osteoarthritis, left knee (principal); S83.92XA Sprain of unspecified site of left knee, initial encounter; N91.2 Amenorrhea, unspecified
CPT/HCPCS: 81025

== ENCOUNTER → 2019-02-07 | Outpatient (CLI) | payer BC, OTHER ==
[2019-02-07 08:45] VITALS: BP 130/88; PULSE 92; RESP 16; TEMP 98.8; BMI 48.0
--- NOTE | 2019-02-07 09:14 | P.HPBAR ---
Bariatric H&P - History & Physicial H&P Date: 02/07/19 History & Physicial: Visit/CC: Initial Visit Patient initial contact: Initial weight: 127.006 kg Initial weight in pounds: 280.00 Height: 5 ft 4 in Initial BMI: 48.0 Last weight: Current weight: 127.006 kg Current weight in pounds: 280.00 Current BMI: 48.0 Gary body weight (based on NIH guidelines): 54.431 kg Excess body weight loss: 0.0% The patient is a 28 year-old F who presents for Bariatric Assessment. HPI: She comes in looking for a sleeve vs gastric bypass. She is using Omeprazole. She has tried low carb diet and has weight regain. She went down to 230 pounds during her diet with low carb diet of 10 carbs daily. No commercial diets. She was going to the gym daily. She has been diagnosed with PCOS 10 years ago. Her mother has troubles with her weight. She has friends who had weight loss surgery. Highest weight is present. She has back pain, hip, knees pain. No ankles or feet pain. No stomach or esophageal cancer. Her father had stomach ulcers. No inflammatory bowel disease. She has troubles with food getting stuck with meat on occassion. No blood clots in self or family. She has family history of hypertension and diabetes. She is a diabetic. No food allergies. She still her gallbladder. No prior surgery to the abdomen. MS: 1+ edema SKIN: Panniculitis ASSESSMENT: 1. MBSC 2. Sleep study 3. Labs 4. Nystatin powder Past Medical History Past Medical History: GERD/Reflux Additional Past Medical History / Comment(s): PCOS History of Any Multi-Drug Resistant Organisms: None Reported Past Surgical History: No Surgical Hx Reported Additional Past Surgical History / Comment(s): wisdom teeth removal Past Anesthesia/Blood Transfusion Reactions: No Reported Reaction Additional Past Anesthesia/Blood Transfusion Reaction / Comm: clausterphobia Past Psychological History: Depression Smoking Status: Former smoker Past Alcohol Use History: Occasional Additional Past Alcohol Use History / Comment(s): started smoking at age 15 smokes 1/2 ppd Past Drug Use History: None Reported - Past Family History Father Family Medical History: Hypertension Mother Family Medical History: Hypertension Additional Family Medical History / Comment(s): boarderline dm Surgical - Exam Vital Signs Temp Pulse Resp BP 98.8 F 92 16 130/88 02/07/19 08:41 02/07/19 08:41 02/07/19 08:41 02/07/19 08:41 Bariatric Checklist Checklist: Plan: Checklist: EGD: 1. Hiatal hernia: 2. H. Pylori: HgbA1c: Vitamin D: Smoking: Former smoker Primary care physician referral: Suzanne Psychiatry clearance: Cardiology clearance: Sleep study: Diet journal: VTE risk score: VTE risk level: Rehab needs at discharge:
== END | disposition home or self-care (01) ==
LOC: BARWHC3 08:04
PROVIDERS: ATTEND Surgery Plastic and Reconstructive Surgery
DX: E66.01 Morbid (severe) obesity due to excess calories (principal); K21.9 Gastro-esophageal reflux disease without esophagitis; E28.2 Polycystic ovarian syndrome; E11.9 Type 2 diabetes mellitus without complications; M79.3 Panniculitis, unspecified; Z68.42 Body mass index [BMI] 45.0-49.9, adult; Z87.891 Personal history of nicotine dependence; Z79.899 Other long term (current) drug therapy
CPT/HCPCS: 99211

== ENCOUNTER → 2019-02-18 | Outpatient (CLI) | payer BC, OTHER ==
[2019-02-18 12:18] LABS: INR 0.9 (<1.2); Prothrombin Time 9.6 sec (9.0-12.0)
[2019-02-18 13:15] LABS: HCT 43.1 % (34.0-46.0); MCH 28.8 pg (25.0-35.0); MCHC 32.5 g/dL (31.0-37.0); MCV 88.5 fL (80.0-100.0); Mean Platelet Volume 6.6; Platelet Count 391 k/uL (150-450); RBC 4.87 m/uL (3.80-5.40); RDW 13.5 % (11.5-15.5)
[2019-02-18 18:50] LABS: African American GFR (CKD) 141.8 (60.0-200.0); Albumin 4.4 g/dL (3.80-4.90); Albumin/Globulin Ratio 1.83 (1.60-3.17); BUN/Creat Ratio 13.33 Ratio (12.00-20.00); Calcium 9.6 mg/dL (8.7-10.3); Chol/HDL Ratio 4.41; Globulin 2.4 g/dL (1.6-3.3); LDL Cholesterol,Calculated 112.2 mg/dL (0.0-131.0); Magnesium 1.8 mg/dL (1.5-2.4); Phosphorus 3.5 mg/dL (2.4-5.1); Potassium 4.6 mmol/L (3.5-5.5); Total Bilirubin 0.4 mg/dL (0.3-1.2); Total Protein 6.8 g/dL (6.2-8.2); VLDL Calculation 37.8 mg/dL (5.00-40.00)
[2019-02-18 19:51] LABS: Iron Saturation 19.24 (12.00-45.00)
[2019-02-18 20:00] LABS: Ferritin 77.3 ng/mL (10.0-291.0); Vitamin D 25 Hydroxy 16.5 ng/mL (30.0-100.0)
[2019-02-18 20:01] LABS: Folate, Serum 5.4 ng/mL
[2019-02-18 22:39] LABS: Hemoglobin A1C 7.4 % (4.0-6.0)
[2019-02-19 13:39] LABS: Zinc, Serum 77 ug/dL (60-130)
[2019-02-20 06:27] LABS: Vitamin A 44 ug/dL (38-106)
[2019-02-20 07:15] LABS: Vit B1(Thiamine) 84 ug/L (38-122)
[2019-02-21 09:52] LABS: Anabasine Urine <2.0 ng/mL (<2.0)
== END | disposition home or self-care (01) ==
LOC: LABWHC1 11:21
PROVIDERS: ATTEND Surgery Plastic and Reconstructive Surgery
DX: E66.01 Morbid (severe) obesity due to excess calories (principal); E21.1 Secondary hyperparathyroidism, not elsewhere classified; E89.1 Postprocedural hypoinsulinemia; D50.9 Iron deficiency anemia, unspecified; K90.9 Intestinal malabsorption, unspecified; E55.9 Vitamin D deficiency, unspecified; K76.9 Liver disease, unspecified; N19 Unspecified kidney failure; K50.90 Crohn's disease, unspecified, without complications; Z72.0 Tobacco use
CPT/HCPCS: 36415; 80053; 80061; 80323; 82306; 82525; 82607; 82728; 82746; 83036; 83540; 83550; 83735; 83970; 84100; 84134; 84255; 84425; 84443; 84590; 84630; 85027; 85610; 85730

== ENCOUNTER 2019-03-18 07:21 | Day surgery (SDC) | payer BC, OTHER ==
[2019-03-14 13:34] VITALS: BMI 46.3
--- NOTE | 2019-03-17 19:31 | P.GSHP ---
History of Present Illness H&P Date: 03/18/19 CHIEF COMPLAINT: GERD HISTORY OF PRESENT ILLNESS: The patient is a 28-year-old female who presents reports gastroesophageal reflux disease. Upper endoscopy was offered for further evaluation and management. PAST MEDICAL HISTORY: Please see list. PAST SURGICAL HISTORY: Please see list. MEDICATIONS: Please see list. ALLERGIES: Please see list. SOCIAL HISTORY: No illicit drug use FAMILY HISTORY: No reports of Crohn disease or ulcerative colitis. REVIEW OF ORGAN SYSTEMS: CONSTITUTIONAL: No reports of fevers or chills. GI: Denies any blood in stools or constipation. PHYSICAL EXAM: VITAL SIGNS: Stable GENERAL: Well-developed and pleasant in no acute distress. HEENT: No scleral icterus. Extraocular movements grossly intact. Moist buccal mucosa. NECK: Supple without lymphadenopathy. CHEST: Unlabored respirations. Equal bilateral excursions. CARDIOVASCULAR: Regular rate and rhythm. Distal 2+ pulses. ABDOMEN: Soft, nondistended. MUSCULOSKELETAL: No clubbing, cyanosis, or edema. ASSESSMENT: 1. Gastroesophageal reflux disease PLAN: 1. Recommend proceeding with an upper endoscopy Past Medical History Past Medical History: GERD/Reflux Additional Past Medical History / Comment(s): PCOS, History of Any Multi-Drug Resistant Organisms: None Reported Past Surgical History: No Surgical Hx Reported Additional Past Surgical History / Comment(s): wisdom teeth removal Past Anesthesia/Blood Transfusion Reactions: No Reported Reaction Additional Past Anesthesia/Blood Transfusion Reaction / Comment(s): clausterphobia Smoking Status: Former smoker - Past Family History Father Family Medical History: Hypertension Mother Family Medical History: Hypertension Additional Family Medical History / Comment(s): boarderline dm Medications and Allergies Home Medications Medication Instructions Recorded Confirmed Type Lisinopril [Zestril] 2.5 mg PO DAILY 07/23/18 03/14/19 History Omeprazole [PriLOSEC] 20 mg PO DAILY 07/23/18 03/14/19 History Nystatin 100,000 Unit/gm Powd 1 applic TOPICAL BID PRN 03/14/19 03/14/19 History [Mycostatin Powder] Allergies Allergy/AdvReac Type Severity Reaction Status Date / Time No Known Allergies Allergy Verified 07/23/18 22:28
[~2019-03-18 07:21] MED LIST: LACTATED RINGERS 1,000 ML IV SCH
[2019-03-18 07:39] VITALS: TEMP 97.8
[2019-03-18] MEDS ORDERED: LACTATED RINGERS 1,000 ML IV ONE (07:45)
[2019-03-18] MEDS ORDERED: LIDOCAINE 1% 20 ML VIAL (10MG/ML) FOR IV START INTRADERMA ONE (07:46)
[2019-03-18] MEDS ORDERED: LIDOCAINE 1% INJ 10MG/ML (20 ML MDV) ONE (07:49)
[2019-03-18] MEDS ORDERED: PROPOFOL 10 MG/ML 20 ML VIAL IV ONE (07:49)
--- NOTE | 2019-03-18 08:03 | P.PCN ---
Date of Procedure: 03/18/19 Description of Procedure: PREOPERATIVE DIAGNOSIS: Gastroesophageal reflux disease. Morbid obesity. POSTOPERATIVE DIAGNOSIS: Morbid obesity. Gastritis. Gastroesophageal reflux disease. OPERATION: Esophagogastroduodenoscopy with biopsies along antrum. SURGEON: Latasha Garcia MD ANESTHESIA: MAC. INDICATIONS: The patient is a 28-year-old female who presents with a history of reflux disease. Benefits and risks of the procedure were described. Informed consent was obtained. DESCRIPTION: The patient was brought into the endoscopy suite and laid in the left lateral decubitus position. An Olympus gastroscope was passed along the posterior oropharynx down to the distal esophagus where the squamocolumnar junction was encountered at 36 cm from the incisors. The stomach was entered and no bile reflux was found. Additional findings are listed below. Biopsies with cold forceps were obtained of the antrum. The first through third portion of the duodenum was examined and unremarkable. Retroflexion of the scope confirmed Hill grade 1 lower esophageal valve. The squamocolumnar junction demonstrated LA grade B erosive esophagitis. The stomach was desufflated. The patient tolerated the procedure well. FINDINGS: Squamocolumnar junction 36 cm from the incisors. Diaphragmatic hiatus at 36 cm. Hill grade 1 lower esophageal valve. LA grade B erosive esophagitis. No active duodenitis. Chronic gastritis RECOMMENDATIONS: Upper endoscopy as needed. Plan - Discharge Summary Discharge Rx Participant: No New Discharge Prescriptions: No Action Omeprazole [PriLOSEC] 20 mg PO DAILY Lisinopril [Zestril] 2.5 mg PO DAILY Nystatin 100,000 Unit/gm Powd [Mycostatin Powder] 1 applic TOPICAL BID PRN PRN Reason: Rash Discharge Medication List Lisinopril [Zestril] 2.5 mg PO DAILY 07/23/18 [History] Omeprazole [PriLOSEC] 20 mg PO DAILY 07/23/18 [History] Nystatin 100,000 Unit/gm Powd [Mycostatin Powder] 1 applic TOPICAL BID PRN 03/14/19 [History] [facility]Ref[place] [facility] [place] [place] [facility] [place] Patient Instructions/Handouts: Gastritis (DC) Discharge Disposition: HOME SELF-CARE
[2019-03-18 08:32] VITALS: BP 127/83; PULSE 81; RESP 20
== END 2019-03-18 08:46 | disposition home or self-care (01) ==
LOC: ORWHC2ENDO 07:21
PROVIDERS: ATTEND Surgery Plastic and Reconstructive Surgery
DX: K29.50 Unspecified chronic gastritis without bleeding (principal); E28.2 Polycystic ovarian syndrome; K21.0 Gastro-esophageal reflux disease with esophagitis; K22.10 Ulcer of esophagus without bleeding; E66.01 Morbid (severe) obesity due to excess calories; F40.240 Claustrophobia; Z79.899 Other long term (current) drug therapy; Z98.818 Other dental procedure status; Z87.891 Personal history of nicotine dependence; Z68.42 Body mass index [BMI] 45.0-49.9, adult; Z82.49 Family history of ischemic heart disease and other diseases of the circulatory system; Z83.3 Family history of diabetes mellitus
CPT/HCPCS: 81025; 88305; 43239; J2001; J2704

== ENCOUNTER → 2019-03-28 | Outpatient (CLI) | payer BC, OTHER ==
[2019-03-28 10:15] VITALS: BP 126/86; PULSE 76; TEMP 98.8; BMI 48.0
--- NOTE | 2019-03-28 10:48 | P.PN ---
Subjective Progress Note Date: 03/28/19 DATE OF SERVICE: 03/28/2019 CHIEF COMPLAINT: Morbid obesity. HISTORY OF PRESENT ILLNESS: Manasa Hubbard is a 28-year-old female who comes with lifelong morbid obesity. She comes with polycystic ovarian syndrome (PCOS) including back pain, hip, knees pain and diabetes. She reports occassional abdominal pain. She has gastroesophageal reflux disease. Her mother had gallbladder removed. She has completed upper endoscopy. At height of 5 feet 4 inches, her ideal body weight is 144 pounds. She comes in 279 pounds. Her weight is unchaned. Her body mass index is 48.1. She is 135 pounds overweight. PAST MEDICAL HISTORY: 1. Morbid obesity due to excess calories 2. Body mass index of 48.1, initial 3. Hypertensive heart disease. 4. Gastroesophageal reflux disease 5. Polycystic ovarian syndrome 6. Osteoarthritis of the lower back 7. Osteoarthritis of the hips 8. Osteoarthritis of the knees 9. Dysphagia 10. Diabetes type 2, non-insulin dependent PAST SURGICAL HISTORY: 1. Denies abdominal surgeries HOME MEDICATIONS: Home Medications Medication Instructions Recorded Confirmed Lisinopril [Zestril] 2.5 mg PO DAILY 07/23/18 03/28/19 Omeprazole [PriLOSEC] 20 mg PO DAILY 07/23/18 03/28/19 Nystatin 100,000 Unit/gm Powd 1 applic TOPICAL BID PRN 03/14/19 03/28/19 [Mycostatin Powder] Calcium Citrate 600 mg PO BID 03/28/19 03/28/19 Cholecalciferol [Vitamin D3] 800 unit PO DAILY@1200 03/28/19 03/28/19 ALLERGIES: Allergies Allergy/AdvReac Type Severity Reaction Status Date / Time No Known Allergies Allergy Verified 03/28/19 10:16 SOCIAL HISTORY: No tobacco use. FAMILY HISTORY: No family history of ulcerative colitis disease or Crohn's disease. Family history of morbid obesity. No lupus in the family. No reports of stomach or esophageal cancer. Her father had stomach ulcers. She has family history of hypertension and diabetes. Her mother had gallbladder removed. REVIEW OF ORGAN SYSTEMS: CONSTITUTIONAL: At height of 5 feet 4 inches, her ideal body weight is 144 pounds. She comes in 279 pounds. Her body mass index is 48.1. She is 135 pounds overweight. HEENT: Denies any active troubles with vision or hearing. Has troubles with swallowing. ENDOCRINE: Has diabetes. No hypothyroidism. CARDIOVASCULAR: No past reports of palpitations or heart attacks or chest pain. RESPIRATORY: No pneumonia. No asthma. GASTROINTESTINAL: Denies any bright red blood per rectum. No diarrhea. No constipation. MUSCULOSKELETAL: Has lower back pain and joint pain. Has osteoarthritis of the knees. Has bilateral edema. NEURO: No headaches. No seizure disorders. PSYCH: No current depression. No suicidal ideation. RHEUMATOLOGIC: No lupus. No rheumatoid arthritis. HEMATOLOGIC: Denies any abnormal bleeding or bruising. No personal history of DVTs. SKIN: No rash. No skin cancer. PHYSICAL EXAM: VITAL SIGNS: Height 5 foot 4 inches, weight 279 pounds. BMI 48.1 Vital Signs Temp 98.8 F 03/28/19 09:19 Pulse 76 03/28/19 09:19 Resp BP 126/86 03/28/19 09:19 Pulse Ox GENERAL: Well-developed in no acute distress. HEENT: No scleral icterus. Extraocular movements grossly intact. Hears conversational speech. No nasal drainage. NECK: Supple without lymphadenopathy. CHEST: Nonlabored respirations with equal bilateral excursions. CARDIOVASCULAR: Regular rate and regular rhythm. Distal 2+ pulses. ABDOMEN: Obese, soft, nontender, nondistended. MUSCULOSKELETAL: No clubbing, cyanosis. Gross strength 5/5 distal lower extremities. 1+ edema NEURO: No focal or lateralizing signs. Cranial nerves 2 through 12 grossly within normal limits. PSYCH: Appropriate affect. Alert and oriented to person, place and time. SKIN: Good skin turgor. Well perfused. Has panniculitis LABS: WBC elevated 14,000; Hgb A1C over 7.4, ALT elevated, Triglycerides elevated, Vitamin D is low 16.5, PTH is elevated 72 EGD FINDINGS: Squamocolumnar junction 36 cm from the incisors. Diaphragmatic hiatus at 36 cm. Hill grade 1 lower esophageal valve. LA grade B erosive esophagitis. No active duodenitis. Chronic gastritis Final Pathologic Diagnosis GASTRIC ANTRUM, BIOPSY: Moderate chronic gastritis. Helicobacter pylori organisms are not identified on routine H+E sections. ASSESSMENT: 1. Morbid obesity due to excess calories 2. Body mass index of 48.1, initial 3. Hypertensive heart disease. 4. Gastroesophageal reflux disease 5. Polycystic ovarian syndrome 6. Osteoarthritis of the lower back 7. Osteoarthritis of the hips 8. Osteoarthritis of the knees 9. Dysphagia 10. Diabetes type 2, non-insulin dependent 11. Elevated liver enzymes 12. Vitamin D deficiency 13. Secondary hyperparathyroidism 14. Hypertriglyceridemia 15. Chronic gastritis PLAN: 1. Recommend ultrasound of the liver for elevated liver enzymes. 2. Recommend diabetes education for uncontrolled diabetes. 3. [facility] [place] reviewed for sleeve gastrectomy 4. Vitamin D 50,000 units weekly or 10,000 units daily Objective - Vital Signs Vital signs: Vital Signs Temp 98.8 F 03/28/19 09:19 Pulse 76 03/28/19 09:19 Resp BP 126/86 03/28/19 09:19 Pulse Ox Intake & Output 03/27/19 03/28/19 03/28/19 18:59 06:59 18:59 Weight 127.006 kg
== END ==
LOC: BARWHC3 09:13
PROVIDERS: ATTEND Surgery Plastic and Reconstructive Surgery
DX: E66.01 Morbid (severe) obesity due to excess calories (principal); E28.2 Polycystic ovarian syndrome; E11.9 Type 2 diabetes mellitus without complications; K21.9 Gastro-esophageal reflux disease without esophagitis; I11.9 Hypertensive heart disease without heart failure; M17.0 Bilateral primary osteoarthritis of knee; M16.0 Bilateral primary osteoarthritis of hip; R74.8 Abnormal levels of other serum enzymes; E55.9 Vitamin D deficiency, unspecified; N25.81 Secondary hyperparathyroidism of renal origin; E78.1 Pure hyperglyceridemia; K29.50 Unspecified chronic gastritis without bleeding; M54.9 Dorsalgia, unspecified; M25.562 Pain in left knee; M25.561 Pain in right knee; M25.559 Pain in unspecified hip; R13.10 Dysphagia, unspecified; Z79.899 Other long term (current) drug therapy; Z79.84 Long term (current) use of oral hypoglycemic drugs; Z68.42 Body mass index [BMI] 45.0-49.9, adult
CPT/HCPCS: 99211

== ENCOUNTER → 2019-05-02 | Outpatient (CLI) | payer BC, OTHER ==
--- NOTE | 2019-05-02 07:51 | US ---
EXAMINATION TYPE: US gallbladder DATE OF EXAM: 05/02/2019 COMPARISON: NONE CLINICAL HISTORY: R10.11 RUQ ABD PAIN. EXAM MEASUREMENTS: Liver Length: 18.5 cm Gallbladder Wall: 0.1 cm CBD: 0.3 cm Right Kidney: 12.0 x 6.6 x 5.4 cm Pancreas: Partially obscured by bowel gas Liver: Enlarged. There is increased echogenicity of the hepatic parenchyma with diminished visualiza tion of the portal triads most commonly relating to hepatic steatosis and limiting evaluation for und erlying hepatic masses. Gallbladder: No stones seen Evidence for sonographic Gaitan's sign: No CBD: wnl Right Kidney: wnl IMPRESSION: 1. Hepatomegaly. Sonographic findings most commonly related to hepatic steatosis. Correlate with live r function tests. 2. No sonographic evidence of cholelithiasis nor acute cholecystitis.
== END | disposition home or self-care (01) ==
LOC: RADUSWWP 07:18
PROVIDERS: ATTEND Surgery Plastic and Reconstructive Surgery
DX: R16.0 Hepatomegaly, not elsewhere classified (principal); K76.0 Fatty (change of) liver, not elsewhere classified
CPT/HCPCS: 76705

== ENCOUNTER → 2019-05-20 | Outpatient (CLI) | payer BC, OTHER ==
[2019-05-20 09:24] VITALS: BMI 46.6
== END | disposition home or self-care (01) ==
LOC: BARWHC3 08:47
PROVIDERS: ATTEND Surgery Plastic and Reconstructive Surgery
DX: E66.01 Morbid (severe) obesity due to excess calories (principal); Z68.42 Body mass index [BMI] 45.0-49.9, adult
CPT/HCPCS: 97804

== ENCOUNTER → 2019-07-09 | Outpatient (CLI) | payer BC, OTHER ==
[2019-07-09 13:00] LABS: Basophils # (A) 0.1 k/uL (0-0.2); Basophils % (A) 1 %; Eosinophils # (A) 0.3 k/uL (0-0.7); Eosinophils % (A) 2 %; HCT 46.2 % (34.0-46.0); Lymphocytes # (A) 3.3 k/uL (1.0-4.8); Lymphocytes % (A) 26 %; MCH 28.7 pg (25.0-35.0); MCHC 32.4 g/dL (31.0-37.0); MCV 88.6 fL (80.0-100.0); Mean Platelet Volume 8.5; Monocytes # (A) 0.7 k/uL (0-1.0); Monocytes % (A) 6 %; Neutrophils # (A) 8.4 k/uL (1.3-7.7); Neutrophils % (A) 65 %; Platelet Count 366 k/uL (150-450); RBC 5.22 m/uL (3.80-5.40); RDW 13.7 % (11.5-15.5); WBC 13.1 k/uL (3.8-10.6)
[2019-07-09 13:10] LABS: ALT 56 U/L (4-34); AST 39 U/L (14-36); African American GFR (CKD) >90 (>60 ml/min/1.73 sqM); Albumin 4.4 g/dL (3.5-5.0); Alkaline Phosphatase 67 U/L (38-126); Anion Gap 7 mmol/L; Blood Urea Nitrogen 11 mg/dL (7-17); Calcium 10.2 mg/dL (8.4-10.2); Carbon Dioxide 31 mmol/L (22-30); Chloride 101 mmol/L (98-107); Glucose 93 mg/dL (74-99); Non-African American GFR(CKD) >90 (>60 ml/min/1.73 sqM); Potassium 5.1 mmol/L (3.5-5.1); Sodium 139 mmol/L (137-145); Total Bilirubin 0.2 mg/dL (0.2-1.3); Total Protein 7.4 g/dL (6.3-8.2)
== END | disposition home or self-care (01) ==
LOC: LABPAT 11:58
PROVIDERS: ATTEND Surgery Plastic and Reconstructive Surgery
DX: Z01.812 Encounter for preprocedural laboratory examination (principal); E55.9 Vitamin D deficiency, unspecified
CPT/HCPCS: 36415; 80053; 82306; 85025

== ENCOUNTER → 2019-07-10 | Outpatient (CLI) | payer BC, OTHER ==
--- NOTE | 2019-07-10 13:12 | P.PN ---
Subjective Progress Note Date: 07/10/19 DATE OF SERVICE: 07/10/2019 CHIEF COMPLAINT: Morbid obesity. HISTORY OF PRESENT ILLNESS: Manasa Hubbard is a 29-year-old female who comes with lifelong morbid obesity. She comes with polycystic ovarian syndrome (PCOS) including back pain, hip, knees pain and diabetes. She reports gastroesophageal reflux disease. She denies any active abdominal pain. She comes in looking for surgical intervention for weight loss including sleeve gastrectomy. At height of 5 feet 4 inches, her ideal body weight is 144 pounds. She comes in 252 pounds from 279 pounds, 3 months ago. She has lost 27 pounds in 3 months. Her body mass index is down from 48.1 to 43.4. She is 108 pounds overweight. PAST MEDICAL HISTORY: 1. Morbid obesity due to excess calories 2. Body mass index of 48.1, initial 3. Hypertensive heart disease. 4. Gastroesophageal reflux disease 5. Polycystic ovarian syndrome 6. Osteoarthritis of the lower back 7. Osteoarthritis of the hips 8. Osteoarthritis of the knees 9. Dysphagia 10. Diabetes type 2, non-insulin dependent PAST SURGICAL HISTORY: 1. Denies abdominal surgeries HOME MEDICATIONS: Home Medications Medication Instructions Recorded Confirmed Lisinopril [Zestril] 2.5 mg PO DAILY 07/23/18 03/28/19 Omeprazole [PriLOSEC] 20 mg PO DAILY 07/23/18 03/28/19 Nystatin 100,000 Unit/gm Powd 1 applic TOPICAL BID PRN 03/14/19 03/28/19 [Mycostatin Powder] Calcium Citrate 600 mg PO BID 03/28/19 03/28/19 Cholecalciferol [Vitamin D3] 800 unit PO DAILY@1200 03/28/19 03/28/19 ALLERGIES: Allergies Allergy/AdvReac Type Severity Reaction Status Date / Time No Known Allergies Allergy Verified 03/28/19 10:16 SOCIAL HISTORY: No tobacco use. FAMILY HISTORY: No family history of ulcerative colitis disease or Crohn's disease. Family history of morbid obesity. No lupus in the family. No reports of stomach or esophageal cancer. Her father had stomach ulcers. She has family history of hypertension and diabetes. Her mother had gallbladder removed. REVIEW OF ORGAN SYSTEMS: CONSTITUTIONAL: At height of 5 feet 4 inches, her ideal body weight is 144 pounds. She comes in 279 pounds. Her body mass index is 48.1. She is 135 pounds overweight. HEENT: Denies any active troubles with vision or hearing. Has troubles with swallowing. ENDOCRINE: Has diabetes. No hypothyroidism. CARDIOVASCULAR: No past reports of palpitations or heart attacks or chest pain. RESPIRATORY: No pneumonia. No asthma. GASTROINTESTINAL: Denies any bright red blood per rectum. No diarrhea. No constipation. MUSCULOSKELETAL: Has lower back pain and joint pain. Has osteoarthritis of the knees. Has bilateral edema. NEURO: No headaches. No seizure disorders. PSYCH: No current depression. No suicidal ideation. RHEUMATOLOGIC: No lupus. No rheumatoid arthritis. HEMATOLOGIC: Denies any abnormal bleeding or bruising. No personal history of DVTs. SKIN: No rash. No skin cancer. PHYSICAL EXAM: VITAL SIGNS: Height 5 foot 4 inches, weight 252 pounds. BMI 43.4 Vital Signs Temp 97.7 F 07/10/19 13:22 Pulse 78 07/10/19 13:22 Resp BP 139/80 07/10/19 13:22 Pulse Ox GENERAL: Well-developed in no acute distress. HEENT: No scleral icterus. Extraocular movements grossly intact. Hears conversational speech. No nasal drainage. NECK: Supple without lymphadenopathy. CHEST: Nonlabored respirations with equal bilateral excursions. CARDIOVASCULAR: Regular rate and regular rhythm. Distal 2+ pulses. ABDOMEN: Obese, soft, nontender, nondistended. MUSCULOSKELETAL: No clubbing, cyanosis. NEURO: No focal or lateralizing signs. Cranial nerves 2 through 12 grossly within normal limits. PSYCH: Appropriate affect. Alert and oriented to person, place and time. SKIN: Good skin turgor. Well perfused. Has panniculitis ASSESSMENT: 1. Morbid obesity due to excess calories 2. Body mass index of 48.1, initial to 43.4 3. Hypertensive heart disease. 4. Gastroesophageal reflux disease 5. Polycystic ovarian syndrome 6. Osteoarthritis of the lower back 7. Osteoarthritis of the hips 8. Osteoarthritis of the knees 9. Dysphagia 10. Diabetes type 2, non-insulin dependent 11. Elevated liver enzymes 12. Vitamin D deficiency 13. Secondary hyperparathyroidism 14. Hypertriglyceridemia 15. Chronic gastritis PLAN: 1. Bariatric options between a sleeve, band and a Nic-en-Y gastric bypass were reviewed in detail. The patient elected for a sleeve gastrectomy. Robotic assisted approach described. 2. The [place] [facility] Data was also reviewed with benefits and risks as described. 3. An 8 page second-generation bariatric consent form was reviewed in detail including potential of bleeding, infection, leaks, adequate weight loss, nutritional deficiencies which the patient demonstrated understanding of the risks. 4. A 2 week high-protein low caloric 800 kcal diet described to address hepatomegaly. 5. Preoperative labs including complete metabolic panel and CBC with type and screen recommended. 6. DVT prophylaxis per [place] [facility]. 7. Antibiotic prophylaxis. 8. Inpatient hospitalization anticipated for more than 2 nights. 9. All questions and concerns were addressed with the patient. 10. She is elevated risk for complications with pre-existing gastroesophageal reflux disease.
[2019-07-10 13:25] VITALS: BP 139/80; PULSE 78; TEMP 97.7; BMI 43.4
== END | disposition home or self-care (01) ==
LOC: BARWHC3 12:41
PROVIDERS: ATTEND Surgery Plastic and Reconstructive Surgery
DX: E66.01 Morbid (severe) obesity due to excess calories (principal); Z68.41 Body mass index [BMI] 40.0-44.9, adult; I11.9 Hypertensive heart disease without heart failure; E28.2 Polycystic ovarian syndrome; M47.816 Spondylosis without myelopathy or radiculopathy, lumbar region; M17.0 Bilateral primary osteoarthritis of knee; M16.0 Bilateral primary osteoarthritis of hip; R13.10 Dysphagia, unspecified; E11.9 Type 2 diabetes mellitus without complications; R74.8 Abnormal levels of other serum enzymes; E55.9 Vitamin D deficiency, unspecified; N25.81 Secondary hyperparathyroidism of renal origin; E78.1 Pure hyperglyceridemia; K29.50 Unspecified chronic gastritis without bleeding; K21.9 Gastro-esophageal reflux disease without esophagitis
CPT/HCPCS: 99211

== ENCOUNTER 2019-07-15 05:53 | Inpatient (IN) | payer BC, OTHER ==
[2019-07-04 15:05] VITALS: BMI 44.8
--- NOTE | 2019-07-14 19:08 | P.GSHP ---
History of Present Illness H&P Date: 07/15/19 DATE OF SERVICE: 07/15/2019 CHIEF COMPLAINT: Morbid obesity. HISTORY OF PRESENT ILLNESS: Manasa Hubbard is a 29-year-old female who comes with lifelong morbid obesity. She comes with polycystic ovarian syndrome (PCOS) including back pain, hip, knees pain and diabetes. She reports occassional a bdominal pain. She has gastroesophageal reflux disease. At height of 5 feet 4 inches, her ideal body weight is 144 pounds. She comes in 279 pounds. Her body mass index is 48.1. She is 135 pounds overweight. PAST MEDICAL HISTORY: 1. Morbid obesity due to excess calories 2. Body mass index of 48.1, initial 3. Hypertensive heart disease. 4. Gastroesophageal reflux disease 5. Polycystic ovarian syndrome 6. Osteoarthritis of the lower back 7. Osteoarthritis of the hips 8. Osteoarthritis of the knees 9. Dysphagia 10. Diabetes type 2, non-insulin dependent PAST SURGICAL HISTORY: 1. Denies abdominal surgeries HOME MEDICATIONS: Home Medications Medication Instructions Recorded Confirmed Lisinopril [Zestril] 2.5 mg PO DAILY 07/23/18 03/28/19 Omeprazole [PriLOSEC] 20 mg PO DAILY 07/23/18 03/28/19 Nystatin 100,000 Unit/gm Powd 1 applic TOPICAL BID PRN 03/14/19 03/28/19 [Mycostatin Powder] Calcium Citrate 600 mg PO BID 03/28/19 03/28/19 Cholecalciferol [Vitamin D3] 800 unit PO DAILY@1200 03/28/19 03/28/19 ALLERGIES: Allergies Allergy/AdvReac Type Severity Reaction Status Date / Time No Known Allergies Allergy Verified 03/28/19 10:16 SOCIAL HISTORY: No tobacco use. FAMILY HISTORY: No family history of ulcerative colitis disease or Crohn's disease. Family history of morbid obesity. No lupus in the family. No reports of stomach or esophageal cancer. Her father had stomach ulcers. She has family history of hypertension and diabetes. Her mother had gallbladder removed. REVIEW OF ORGAN SYSTEMS: CONSTITUTIONAL: At height of 5 feet 4 inches, her ideal body weight is 144 pounds. She comes in 279 pounds. Her body mass index is 48.1. She is 135 pounds overweight. HEENT: Denies any active troubles with vision or hearing. Has troubles with swallowing. ENDOCRINE: Has diabetes. No hypothyroidism. CARDIOVASCULAR: No past reports of palpitations or heart attacks or chest pain. RESPIRATORY: No pneumonia. No asthma. GASTROINTESTINAL: Denies any bright red blood per rectum. No diarrhea. No constipation. MUSCULOSKELETAL: Has lower back pain and joint pain. Has osteoarthritis of the knees. Has bilateral edema. NEURO: No headaches. No seizure disorders. PSYCH: No current depression. No suicidal ideation. RHEUMATOLOGIC: No lupus. No rheumatoid arthritis. HEMATOLOGIC: Denies any abnormal bleeding or bruising. No personal history of DVTs. SKIN: No rash. No skin cancer. PHYSICAL EXAM: VITAL SIGNS: Height 5 foot 4 inches, weight 279 pounds. BMI 48.1 GENERAL: Well-developed in no acute distress. HEENT: No scleral icterus. Extraocular movements grossly intact. Hears conversational speech. No nasal drainage. NECK: Supple without lymphadenopathy. CHEST: Nonlabored respirations with equal bilateral excursions. CARDIOVASCULAR: Regular rate and regular rhythm. Distal 2+ pulses. ABDOMEN: Obese, soft, nontender, nondistended. MUSCULOSKELETAL: No clubbing, cyanosis. Gross strength 5/5 distal lower extremities. 1+ edema NEURO: No focal or lateralizing signs. Cranial nerves 2 through 12 grossly within normal limits. PSYCH: Appropriate affect. Alert and oriented to person, place and time. SKIN: Good skin turgor. Well perfused. Has panniculitis ASSESSMENT: 1. Morbid obesity due to excess calories 2. Body mass index of 48.1, initial 3. Hypertensive heart disease. 4. Gastroesophageal reflux disease 5. Polycystic ovarian syndrome 6. Osteoarthritis of the lower back 7. Osteoarthritis of the hips 8. Osteoarthritis of the knees 9. Dysphagia 10. Diabetes type 2, non-insulin dependent 11. Elevated liver enzymes 12. Vitamin D deficiency 13. Secondary hyperparathyroidism 14. Hypertriglyceridemia 15. Chronic gastritis PLAN: 1. Bariatric options between a sleeve, band and a Nic-en-Y gastric bypass were reviewed in detail. The patient elected for a sleeve gastrectomy. Robotic assisted approach described. 2. The [place] [facility] Data was also reviewed with benefits and risks as described. 3. An 8 page second-generation bariatric consent form was reviewed in detail including potential of bleeding, infection, leaks, adequate weight loss, nutritional deficiencies which the patient demonstrated understanding of the risks. 4. A 2 week high-protein low caloric 800 kcal diet described to address hepatomegaly. 5. Preoperative labs including complete metabolic panel and CBC with type and screen recommended. 6. DVT prophylaxis per [place] [facility]. 7. Antibiotic prophylaxis. 8. Inpatient hospitalization anticipated for more than 2 nights. 9. All questions and concerns were addressed with the patient. Past Medical History Past Medical History: Diabetes Mellitus, GERD/Reflux, Hypertension Additional Past Medical History / Comment(s): PCOS, History of Any Multi-Drug Resistant Organisms: None Reported Past Surgical History: No Surgical Hx Reported Additional Past Surgical History / Comment(s): wisdom teeth removal,EGD Past Anesthesia/Blood Transfusion Reactions: No Reported Reaction Additional Past Anesthesia/Blood Transfusion Reaction / Comment(s): claustrophobia,no hx blood transfusion Smoking Status: Former smoker - Past Family History Father Family Medical History: Hypertension Mother Family Medical History: Hypertension Additional Family Medical History / Comment(s): boarderline dm Medications and Allergies Home Medications Medication Instructions Recorded Confirmed Type Lisinopril [Zestril] 2.5 mg PO QAM 07/23/18 07/10/19 History Omeprazole [PriLOSEC] 20 mg PO QAM 07/23/18 07/10/19 History Nystatin 100,000 Unit/gm Powd 1 applic TOPICAL BID PRN 03/14/19 07/10/19 History [Mycostatin Powder] Calcium Citrate 600 mg PO BID 03/28/19 07/10/19 History Cholecalciferol [Vitamin D3] 800 unit PO DAILY@1200 03/28/19 07/10/19 History Allergies Allergy/AdvReac Type Severity Reaction Status Date / Time No Known Allergies Allergy Verified 07/10/19 14:55
[2019-07-15] MEDS ORDERED: LIDOCAINE 1% (10MG/ML) FOR IV START INTRADERMA PRN (05:57)
[2019-07-15] MEDS ORDERED: PANTOPRAZOLE 40 MG/10 ML VIAL IV STA (05:57)
[2019-07-15] MEDS ORDERED: ONDANSETRON 4 MG/2 ML VIAL IVP ONE (05:57)
[2019-07-15] MEDS ORDERED: DEXAMETHASONE SOD PHOSPHATE 10 MG/ML 1 ML VIAL IV ONE (05:57)
[2019-07-15] MEDS ORDERED: ENOXAPARIN 40 MG/0.4 ML SYRINGE SQ STA (05:57)
[2019-07-15] MEDS ORDERED: SCOPOLAMINE 1.5MG/72HR PATCH TRANSDERM ONE (05:57)
[2019-07-15] MEDS ORDERED: CHLORHEXIDINE GLUCONATE 15 ML CUP MUCOUS MEM ONE (05:57)
[2019-07-15] MEDS: LACTATED RINGERS 1,000 ML IV SCH (06:32)
[2019-07-15 06:45] LABS: Glucose,Whole Blood 119 mg/dL (75-99)
[2019-07-15] MEDS ORDERED: MIDAZOLAM 2 MG/2 ML VIAL IV ONE ×3 (06:49→06:54)
[2019-07-15] MEDS ORDERED: fentaNYL (PF) 50 MCG/ML 2 ML AMP ONE (07:41)
[2019-07-15] MEDS ORDERED: PROPOFOL 10 MG/ML 20 ML VIAL IV ONE (07:41)
[2019-07-15] MEDS ORDERED: VECURONIUM 10 MG VIAL IV ONE (07:41)
[2019-07-15] MEDS ORDERED: GLYCOPYRROLATE 0.2 MG/ML 2 ML VIAL ONE (07:41)
[2019-07-15] MEDS ORDERED: HYDROmorphone (PF) 1 MG/ML ONE (07:41)
[2019-07-15] MEDS ORDERED: MIDAZOLAM 2 MG/2 ML VIAL ONE (07:41)
[2019-07-15] MEDS ORDERED: NEOSTIGMINE 1 MG/ML 10 ML VIAL ONE (07:41)
[2019-07-15] MEDS ORDERED: LIDOCAINE 1% INJ 10MG/ML (20 ML MDV) ONE (07:41)
[2019-07-15] MEDS ORDERED: SUCCINYLCHOLINE CHLORIDE 100 MG/5 ML SYR IV ONE (07:41)
[2019-07-15] MEDS ORDERED: BUPIVACAINE (PF) 0.5% 30 ML VIAL SQ ONE ×2 (08:30)
[2019-07-15] MEDS ORDERED: LACTATED RINGERS 1,000 ML IV ONE (09:29)
[2019-07-15] MEDS ORDERED: NALOXONE 0.4 MG/ML 1 ML VIAL IV PRN (09:40)
--- NOTE | 2019-07-15 09:51 | P.OP ---
Date of Procedure: 07/15/19 Description of Procedure: SURGEON: ROSALIND JANE MD PREOPERATIVE DIAGNOSES: 1. Morbid obesity due to excess calories 2. Body mass index of 48.1, initial 3. Hypertensive heart disease. 4. Gastroesophageal reflux disease 5. Polycystic ovarian syndrome 6. Osteoarthritis of the lower back 7. Osteoarthritis of the hips 8. Osteoarthritis of the knees 9. Dysphagia 10. Diabetes type 2, non-insulin dependent 11. Elevated liver enzymes 12. Vitamin D deficiency 13. Secondary hyperparathyroidism 14. Hypertriglyceridemia 15. Chronic gastritis POSTOPERATIVE DIAGNOSES: 1. Morbid obesity due to excess calories 2. Body mass index of 48.1, initial 3. Hypertensive heart disease. 4. Gastroesophageal reflux disease 5. Polycystic ovarian syndrome 6. Osteoarthritis of the lower back 7. Osteoarthritis of the hips 8. Osteoarthritis of the knees 9. Dysphagia 10. Diabetes type 2, non-insulin dependent 11. Elevated liver enzymes 12. Vitamin D deficiency 13. Secondary hyperparathyroidism 14. Hypertriglyceridemia 15. Chronic gastritis 16. Hepatomegaly with fatty liver disease OPERATION: 1. Robotic assisted daVinci Xi laparoscopic sleeve gastrectomy with 40-Khmer bougie, multiport. 2. Intraoperative esophagogastroduodenoscopy. ANESTHESIA: Gen. local anesthetic ESTIMATED BLOOD LOSS: 5 mL SPECIMENS REMOVED: Sleeve gastrectomy COMPLICATIONS: None. INDICATIONS: Manasa Hubbard is a 29-year-old female who comes with lifelong morbid obesity. She comes with polycystic ovarian syndrome (PCOS) including back pain, hip, knees pain and diabetes. She reports occassional abdominal pain. She has gastroesophageal reflux disease. At height of 5 feet 4 inches, her ideal body weight is 144 pounds. She comes in 249 pounds from 279 pounds, pre-surgical. Her body mass index is 42.8 from 48.1. She is 105 pounds overweight. She comes in for sleeve gastrectomy. All surgical options for morbid obesity had been described using the [place] bariatric surgery collaborative comorbidity resolution including complication risk score. A second-generation bariatric co nsent form was described in detail including the possibility of protein malnutrition, leaks, gastric stricture, venous thrombosis, gastroesophageal reflux disease, need for further surgery for which she demonstrated understanding. Benefits and risks of the procedure were described at length. Informed consent was obtained. DESCRIPTION: The patient was brought into the operating room theater. Preo peratively she had received Lovenox subcutaneously for DVT prophylaxis. Additionally she had Peridex oral solution as an oral decontaminant. After general induction, the abdomen was prepped and draped in standard sterile fashion. An Ioban draping was placed along the abdomen. A robotic da Eliazar Xi system was prepped and primed. At 15 cm from the xiphoid, proposed port sites were marked with indelible marker along the anterior axillary line bilaterally, mid axillary line bilaterally with each ports were marked 10 to 15 cm from each other. The resident programs assistant port was marked along the left lateral abdominal wall. The robotic stapler port was marked for the right midclavicular line. A 5 mm 0 degrees laparoscopic trocar entry was performed along the left upper quadrant. The abdomen was insufflated to 15 mmHg pressure was tolerated well. Diagnostic laparoscopy demonstrated no injury to bowel, viscera, or mesentery. The liver surface was remarkable for fatty liver disease and hepatomegaly despite her low-carb high-protein diet for 2 weeks. No injury had occurred to the small bowel or viscera. Along the hiatus no evidence of large prominent hiatal hernia was found. A 8 mm port was placed along the left upper abdominal wall after exchanging the 5 mm port. A separate 8 mm port was placed along the left lateral abdominal wall. Please note that the ports were placed at least 20 cm away from the target anatomy. Care was taken to check each robotic arms were safely away from collision with the bed or the patient. At the epigastrium, a median sized Madonna liver retractor was placed under direct visualization with the Iron Hacksaw Inspector placed under the right shoulder of the patient. Next, 12-mm robot stapler port was placed along the right upper quadrant. The camera 8-mm port was maintained along the epigastrium, The patient was repositioned in reverse Trendelenburg position at 20-degrees after lowering the bed. The robot was docked along the left side of the patient. Using a grasper for arm 3, a vessel sealer for arm 4, including grasper for arm 1, the robotic system was docked and primed as described. Instruments were interchanged by the resident programs assistant for stapler loads. The camera was placed at 30- degrees down. I had sat at the console. The pylorus was identified and 6 cm proximally along the greater curvature of the stomach, the short gastrics were mobilized upwards to the angle of His using a vessel sealer. Hemostasis was excellent during this portion of the procedure. Next, the upper pole of the stomach was adherent to the left jaquelin, which was gently dissected free using atraumatic grasper. The nursing wood club neck whipper placed a 40-Khmer blunted bougie into the stomach. Robotic stapler green loads 60 mm x 6, followed by blue 60 mm x 1 loads were used to create the sleeve. Initial firing was across the antrum of the stomach towards the angle of His. The staple line was completely hemostatic and linear without corkscrewing. Hemostasis was excellent. The space from the angularis incisura of the sleeve was approximately 4 cm. I then went to the head of the bed to perform the intraoperative esophagogastroduodenoscopy leak test. The upper pole of the stomach was bathed using normal saline solution. The scope was withdrawn with careful inspection along the staple line for which no leaks were found along the entire length. Additionally,the sleeve was completely hemostatic without any encroachment along the angularis incisura. Its topology was a soft "J". No stricture was encountered upon placement of the scope. The GI tract was desufflated. The patient tolerated this portion of the procedure well. The scope was completely withdrawn. The robot was undocked. I then rescrubbed into case, whereby the irrigation fluid was aspirated from the abdominal cavity. Tisseel fibrin sealant was placed along the entire staple length. Once dried the Madonna liver retractor was removed. Attention was now brought to removal of the specimen. The distal end of the sleeve gastrectomy specimen was brought out through the 12 mm port at the left upper quadrant. The specimen was gently removed en total. No contamination had occurred during this process. All instruments and pneumoperitoneum including irrigation fluid was removed from the abdominal cavity. The 12 mm port site was closed using 0-Vicryl and Irvin Hemphill and irrigated with diluted hydrogen peroxide. The final incisions were closed using subcuticular interrupted suture of 4-0 Monocryl. Dermabond was applied to the skin once the skin had been cleansed. OptiFoam dressing was placed along the stomach extraction site. Abdominal binder was placed. At the end of the procedure, needle, sponge, and instrument count was verified correct by the surgical elastic knitter hand frame. The patient was taken to the postanesthesia care unit in stable condition. She had tolerated the procedure well. Intraoperative films and findings were reviewed with the patient's family. FINDINGS: 1. Negative intraoperative esophagogastrojejunoscopy leak test. 2. Hepatomegaly and no large hiatus hernia. 3. Total of 7 staplers used including 6 - 60 mm green robot barrett and 1 - 60 mm blue robot loads used to create the gastric sleeve. 4. Trocars placed 15 cm from xiphoid process 5. Sleeve gastrectomy 29.5 x 4 cm 6. Console time 30 minutes
[2019-07-15] MEDS ORDERED: DEXAMETHASONE SOD PHOSPHATE 10 MG/ML 1 ML VIAL IV PRN (09:52)
[2019-07-15] MEDS: HYDROmorphone 0.5 MG/0.5 ML SYRINGE IVP PRN ×2 (10:00→11:04)
[2019-07-15] MEDS ORDERED: diphenhydrAMINE 50 MG/ML 1 ML VIAL IVP ONE (10:00)
[2019-07-15] MEDS ORDERED: PROMETHAZINE INJ 25 MG/ML 1 ML VIAL IVPB ONE (10:42)
[2019-07-15] MEDS: ALBUTEROL NEBULIZED 2.5 MG/3 ML INHALATION SCH ×3 (13:06→21:19)
[2019-07-15] MEDS: HYDROmorphone 1 MG/ML 1 ML SYRINGE IVP PRN ×2 (13:27→18:15)
[2019-07-15] MEDS: ONDANSETRON 4 MG/2 ML VIAL IVP SCH ×3 (13:37→23:16)
[2019-07-15] MEDS: 0.9% NACL WITH KCL 20 MEQ/L 1,000 ML IV SCH ×3 (13:43→20:59)
--- NOTE | 2019-07-15 14:35 | FL ---
EXAMINATION TYPE: FL UGI DATE OF EXAM: 07/15/2019 CLINICAL HISTORY: Status post gastric sleeve TECHNIQUE: Limited esophagram is performed utilizing 50 cc of Isovue-370. A total of 35 seconds of f luoroscopic time was utilized during procedure. 18 fluoroscopic images were saved. COMPARISON: None. FINDINGS: The patient swallowed contrast without difficulty or delay. Esophageal peristalsis and mo tility are within normal limits. There is good flow of contrast along the diaphragmatic hiatus into proximal stomach and subsequent flow into gastric sleeve. There is good flow from distal sleeve into pylorus and duodenal sweep. Patient remains asymptomatic. There is no evidence of contrast extravasat ion to suggest leak. IMPRESSION: No evidence of leak or significant obstruction status post recent gastric sleeve surgery.
[2019-07-15] MEDS: DEXAMETHASONE SOD PHOSPHATE 4 MG/ML 1 ML VIAL IV SCH ×2 (16:19→23:16)
[2019-07-15] MEDS: METOCLOPRAMIDE 5 MG/ML 2 ML VIAL IVP SCH ×2 (16:19→23:14)
[2019-07-15] MEDS: ACETAMINOPHEN IV (For NPO) 1,000 MG in EMPTY BAG 1 BAG IVPB SCH ×2 (16:20→21:00)
[2019-07-16] MEDS: ACETAMINOPHEN IV (For NPO) 1,000 MG in EMPTY BAG 1 BAG IVPB SCH ×2 (03:38→08:16)
[2019-07-16] MEDS: 0.9% NACL WITH KCL 20 MEQ/L 1,000 ML IV SCH (03:44)
[2019-07-16] MEDS: METOCLOPRAMIDE 5 MG/ML 2 ML VIAL IVP SCH (05:10)
[2019-07-16] MEDS: ONDANSETRON 4 MG/2 ML VIAL IVP SCH (05:10)
[2019-07-16] MEDS: DEXAMETHASONE SOD PHOSPHATE 4 MG/ML 1 ML VIAL IV SCH (05:10)
[2019-07-16] MEDS: LACTATED RINGERS 1,000 ML IV SCH (05:12)
[2019-07-16] MEDS ORDERED: ENOXAPARIN 40 MG/0.4 ML SYRINGE SQ SCH (06:00)
[2019-07-16 07:52] VITALS: BP 142/87; RESP 16; TEMP 98.7
[2019-07-16 07:59] LABS: Basophils % (A) 0 %; Eosinophils # (A) 0.1 k/uL (0-0.7); Eosinophils % (A) 1 %; HCT 41.3 % (34.0-46.0); HGB 13.5 gm/dL (11.4-16.0); Lymphocytes # (A) 1.5 k/uL (1.0-4.8); Lymphocytes % (A) 9 %; MCH 28.9 pg (25.0-35.0); MCHC 32.7 g/dL (31.0-37.0); MCV 88.3 fL (80.0-100.0); Mean Platelet Volume 9.1; Monocytes # (A) 0.6 k/uL (0-1.0); Monocytes % (A) 3 %; Neutrophils # (A) 15.4 k/uL (1.3-7.7); Neutrophils % (A) 87 %; Platelet Count 365 k/uL (150-450); RBC 4.68 m/uL (3.80-5.40); RDW 13.5 % (11.5-15.5); WBC 17.6 k/uL (3.8-10.6)
[2019-07-16] MEDS ORDERED: 1: MVI, ADULT NO.4 WITH VIT K 10 ML, THIAMINE 100 MG, FOLIC ACID 1 MG, POTASSIUM CHLORID IV SCH ×6 (08:00)
[2019-07-16 08:12] LABS: African American GFR (CKD) >90 (>60 ml/min/1.73 sqM); Anion Gap 10 mmol/L; Blood Urea Nitrogen 4 mg/dL (7-17); Calcium 9.5 mg/dL (8.4-10.2); Carbon Dioxide 22 mmol/L (22-30); Chloride 106 mmol/L (98-107); Magnesium 2.1 mg/dL (1.6-2.3); Non-African American GFR(CKD) >90 (>60 ml/min/1.73 sqM); Phosphorus 2.7 mg/dL (2.5-4.5); Potassium 4.7 mmol/L (3.5-5.1); Sodium 138 mmol/L (137-145)
[2019-07-16] MEDS: HYDROmorphone 1 MG/ML 1 ML SYRINGE IVP PRN (08:59)
[2019-07-16] MEDS ORDERED: LISINOPRIL 2.5 MG TAB PO SCH (09:00)
[2019-07-16] MEDS ORDERED: PANTOPRAZOLE 40 MG/10 ML VIAL IVP SCH (09:00)
[2019-07-16] MEDS: ALBUTEROL NEBULIZED 2.5 MG/3 ML INHALATION SCH ×2 (09:36→12:11)
--- NOTE | 2019-07-16 10:47 | P.DS ---
Providers Date of admission: 07/15/19 05:53 Expected date of discharge: 07/16/19 Attending physician: Latasha Garica Primary care physician: Bryan Francois MD Hospital Course: 29-year-old female who underwent robotic-assisted laparoscopic sleeve gastrectomy with Dr. Garcia. Postoperative esophagram completed negative for leak obstruction. Patient is doing well postoperatively without any immediate complications. She is tolerating liquid diet without nausea or vomiting. Pain is controlled on oral medications. Vital signs are stable. She is stable for discharge home today. Please see EMR for further hospital course details. Discharge diagnosis 1. Morbid obesity due to excess calories 2. Body mass index of 48.1, initial 3. Hypertensive heart disease. 4. Gastroesophageal reflux disease 5. Polycystic ovarian syndrome 6. Osteoarthritis of the lower back 7. Osteoarthritis of the hips 8. Osteoarthritis of the knees 9. Dysphagia 10. Diabetes type 2, non-insulin dependent 11. Elevated liver enzymes 12. Vitamin D deficiency 13. Secondary hyperparathyroidism 14. Hypertriglyceridemia 15. Chronic gastritis 16. Hepatomegaly with fatty liver disease Nurse practitioner note has been reviewed by physician. Signing provider agrees with the documented findings, assessment, and plan of care. Patient Condition at Discharge: Stable Plan - Discharge Summary Discharge Rx Participant: No New Discharge Prescriptions: New Bisacodyl [Dulcolax] 5 mg PO DAILY PRN #10 tablet.dr PRN Reason: Constipation Simethicone 40 mg/0.6 ml Drops [Mylicon Drops] 40 mg PO PCHS PRN #30 ml PRN Reason: gas Omeprazole [PriLOSEC] 40 mg PO DAILY #30 cap Ondansetron Odt [Zofran Odt] 4 mg PO Q8HR PRN #9 tab PRN Reason: Nausea Acetaminophen Oral Susp [Tylenol] 650 mg PO Q4H PRN #500 ml PRN Reason: Pain Continue Lisinopril [Zestril] 2.5 mg PO QAM Nystatin 100,000 Unit/gm Powd [Mycostatin Powder] 1 applic TOPICAL BID PRN PRN Reason: Rash Stool Softner 2 tab PO DAILY PRN PRN Reason: Constipation Discontinued Omeprazole [PriLOSEC] 20 mg PO QAM Cholecalciferol [Vitamin D3] 800 unit PO DAILY@1200 Calcium Citrate 600 mg PO BID Discharge Medication List Lisinopril [Zestril] 2.5 mg PO QAM 07/23/18 [History] Nystatin 100,000 Unit/gm Powd [Mycostatin Powder] 1 applic TOPICAL BID PRN 03/14/19 [History] Stool Softner 2 tab PO DAILY PRN 07/15/19 [History] Acetaminophen Oral Susp [Tylenol] 650 mg PO Q4H PRN #500 ml 07/16/19 [Rx] Bisacodyl [Dulcolax] 5 mg PO DAILY PRN #10 tablet.dr 07/16/19 [Rx] Omeprazole [PriLOSEC] 40 mg PO DAILY #30 cap 07/16/19 [Rx] Ondansetron Odt [Zofran Odt] 4 mg PO Q8HR PRN #9 tab 07/16/19 [Rx] Simethicone 40 mg/0.6 ml Drops [Mylicon Drops] 40 mg PO PCHS PRN #30 ml 07/16/19 [Rx] [facility]ment[facility]Ref[facility] [place] [facility]18[facility]19 10:00 am Activity/Diet/Wound Care/Special Instructions: No lifting over 4 pounds You may shower. No soaking or tub baths Very light activity until you are reevaluated at your follow up appointment with your surgeon Continue liquid diet per bariatric center schedule No straws or carbonated beverages Avoid beverages with greater than 6 g of sugar or serving to avoid dumping syndrome Open or crush all medications greater than the size of a tic tac
[2019-07-16 12:14] VITALS: PULSE 78
[2019-07-18] MEDS ORDERED: SCOPOLAMINE 1.5MG/72HR PATCH TRANSDERM SCH (08:00)
== END 2019-07-16 12:31 | disposition home or self-care (01) | DRG 620 ==
LOC: 2ORMAIN 05:53 → 4SSUR 12:57
PROVIDERS: ADMIT Surgery Plastic and Reconstructive Surgery; ATTEND Surgery Plastic and Reconstructive Surgery
PROC: 8E0W4CZ Robotic Assisted Procedure of Trunk Region, Percutaneous Endoscopic Approach (ICD-10-PCS; principal; 2019-07-15 07:30)
PROC: 0DB64Z3 Excision of Stomach, Percutaneous Endoscopic Approach, Vertical (ICD-10-PCS; principal; 2019-07-15 07:30)
PROC: 0DJ08ZZ Inspection of Upper Intestinal Tract, Via Natural or Artificial Opening Endoscopic (ICD-10-PCS; principal; 2019-07-15 07:30)
DX: E66.01 Morbid (severe) obesity due to excess calories (principal); N25.81 Secondary hyperparathyroidism of renal origin; I11.9 Hypertensive heart disease without heart failure; K76.0 Fatty (change of) liver, not elsewhere classified; R16.0 Hepatomegaly, not elsewhere classified; Z68.41 Body mass index [BMI] 40.0-44.9, adult; E11.9 Type 2 diabetes mellitus without complications; R13.10 Dysphagia, unspecified; K21.9 Gastro-esophageal reflux disease without esophagitis; E28.2 Polycystic ovarian syndrome; E55.9 Vitamin D deficiency, unspecified; E78.1 Pure hyperglyceridemia; K29.50 Unspecified chronic gastritis without bleeding; M47.9 Spondylosis, unspecified; M16.0 Bilateral primary osteoarthritis of hip; M17.0 Bilateral primary osteoarthritis of knee; Z79.899 Other long term (current) drug therapy; Z83.49 Family history of other endocrine, nutritional and metabolic diseases; Z83.3 Family history of diabetes mellitus; Z82.49 Family history of ischemic heart disease and other diseases of the circulatory system; Z83.79 Family history of other diseases of the digestive system; Z87.891 Personal history of nicotine dependence
CPT/HCPCS: 36415; 74240; 80051; 80053; 81025; 82306; 82310; 82565; 83735; 84100; 84520; 85025; 86850; 86900; 86901; 88307; 88342; 94640; 94760; 94762

== ENCOUNTER → 2019-07-19 | Outpatient (CLI) | payer BC, OTHER ==
[2019-07-19 11:01] VITALS: BP 117/77; PULSE 71; TEMP 97.1; BMI 41.3
--- NOTE | 2019-07-19 11:32 | P.PN ---
Progress Note - Text Progress Note Date: 07/19/19 Nurse visit only
== END | disposition home or self-care (01) ==
LOC: BARWHC3 09:50
PROVIDERS: ATTEND Surgery Plastic and Reconstructive Surgery
DX: Z48.815 Encounter for surgical aftercare following surgery on the digestive system (principal); Z98.84 Bariatric surgery status; Z87.891 Personal history of nicotine dependence; Z79.899 Other long term (current) drug therapy
CPT/HCPCS: 99211

== ENCOUNTER → 2019-07-24 | Outpatient (CLI) | payer BC, OTHER ==
[2019-07-24 16:34] VITALS: BP 113/79; PULSE 76; RESP 16; TEMP 98.6; BMI 40.8
--- NOTE | 2019-07-24 17:13 | P.PN ---
Subjective Progress Note Date: 07/24/19 No GERD. No infection. She is on Tylenol. Incision without infection. She has abdominal binder. Recommend follow-up in 1 month. She had bowel movement. Objective - Vital Signs Vital signs: Vital Signs Temp 98.6 F 07/24/19 16:31 Pulse 76 07/24/19 16:31 Resp 16 07/24/19 16:31 BP 113/79 07/24/19 16:31 Pulse Ox Intake & Output 07/23/19 07/24/19 07/24/19 18:59 06:59 18:59 Weight 107.955 kg
== END | disposition home or self-care (01) ==
LOC: BARWHC3 16:03
PROVIDERS: ATTEND Surgery Plastic and Reconstructive Surgery
DX: F32.5 Major depressive disorder, single episode, in full remission (principal); E66.01 Morbid (severe) obesity due to excess calories; Z68.41 Body mass index [BMI] 40.0-44.9, adult; Z79.899 Other long term (current) drug therapy
CPT/HCPCS: 97802; 99211

== ENCOUNTER → 2019-08-07 | Outpatient (CLI) | payer BC, OTHER ==
[2019-08-07 13:43] VITALS: BP 113/80; RESP 16; TEMP 98.5
[2019-08-07 13:55] VITALS: PULSE 73; BMI 40.1
--- NOTE | 2019-08-07 14:07 | P.PN ---
Progress Note - Text Progress Note Date: 08/07/19 To Whom It May Concern: Andres Hubbard is undermined my general surgical care. She will need extended time for recovery through September 02. At which time, she may return to work without restrictions September 02. Please contact us if questions. Regards, Latasha Garcia MD, FACS, [facility]
--- NOTE | 2019-08-07 14:08 | P.PN ---
Subjective Progress Note Date: 08/07/19 DATE OF SERVICE: 08/07/2019 CHIEF COMPLAINT: Status post sleeve gastrectomy HISTORY OF PRESENT ILLNESS: aMnasa Hubbard is a 29-year-old female status post sleeve gastrectomy, 07/15/19. She is 3 weeks out. She reports doing well. She has to do a fit test to perform at work where she must lift over 100 pounds. Otherwise she is tolerating diet. No reports of gastroesophageal reflux disease. No fevers or chills. She denies trouble with swallowing. Her weight loss is over 20 pounds following surgery. At height of 5 feet 4 inches, her ideal body weight is 144 pounds. Her highest weight is 279 pounds. She comes in 233 pounds from 237 pounds, 3 weeks ago. She has lost 4 pounds in 3 weeks. Lifetime weight loss 45 pounds. Her body mass index is down from 48.0 to 40.2. Her percent excess weight loss is 34%, lifetime. She is 90 pounds overweight. PHYSICAL EXAM: VITAL SIGNS: Height 5 foot 4 inches, weight 233 pounds. BMI 40.2 Vital Signs Temp 98.5 F 08/07/19 13:41 Pulse 73 08/07/19 13:41 Resp 16 08/07/19 13:41 BP 113/80 08/07/19 13:41 Pulse Ox GENERAL: Well-developed in no acute distress. HEENT: No scleral icterus. Extraocular movements grossly intact. Hears conversational speech. No nasal drainage. NECK: Supple without lymphadenopathy. CHEST: Nonlabored respirations with equal bilateral excursions. CARDIOVASCULAR: Regular rate and regular rhythm. Distal 2+ pulses. ABDOMEN: Incisions are granulating. No infection. No hernia. MUSCULOSKELETAL: No clubbing, cyanosis. NEURO: No focal or lateralizing signs. Cranial nerves 2 through 12 grossly within normal limits. PSYCH: Appropriate affect. Alert and oriented to person, place and time. SKIN: Good skin turgor. Well perfused. Has panniculitis ASSESSMENT: 1. Morbid obesity due to excess calories 2. Body mass index of 48.1 to 40.2 3. Hypertensive heart disease. 4. Gastroesophageal reflux disease 5. Polycystic ovarian syndrome 6. Osteoarthritis of the lower back 7. Osteoarthritis of the hips 8. Osteoarthritis of the knees 9. Dysphagia 10. Diabetes type 2, non-insulin dependent 11. Elevated liver enzymes 12. Vitamin D deficiency 13. Secondary hyperparathyroidism 14. Hypertriglyceridemia 15. Chronic gastritis 16. Status post sleeve gastrectomy PLAN: 1. She has to do a fit test to perform at work where she must lift over 100 pounds. At this time this is premature. 2. She will need extended time off at least through September 02 for her complete recovery to decrease risk for hernias or complications from surgery. Objective - Vital Signs Vital signs: Vital Signs Temp 98.5 F 08/07/19 13:41 Pulse 73 08/07/19 13:41 Resp 16 08/07/19 13:41 BP 113/80 08/07/19 13:41 Pulse Ox Intake & Output 08/06/19 08/07/19 08/07/19 18:59 06:59 18:59 Weight 106.141 kg
== END | disposition home or self-care (01) ==
LOC: BARWHC3 13:27
PROVIDERS: ATTEND Surgery Plastic and Reconstructive Surgery
DX: Z48.815 Encounter for surgical aftercare following surgery on the digestive system (principal); E66.01 Morbid (severe) obesity due to excess calories; I11.9 Hypertensive heart disease without heart failure; K21.9 Gastro-esophageal reflux disease without esophagitis; E28.2 Polycystic ovarian syndrome; M17.0 Bilateral primary osteoarthritis of knee; M16.0 Bilateral primary osteoarthritis of hip; E11.9 Type 2 diabetes mellitus without complications; R74.8 Abnormal levels of other serum enzymes; E55.9 Vitamin D deficiency, unspecified; E21.1 Secondary hyperparathyroidism, not elsewhere classified; E78.1 Pure hyperglyceridemia; K29.50 Unspecified chronic gastritis without bleeding; Z98.84 Bariatric surgery status; Z68.41 Body mass index [BMI] 40.0-44.9, adult
CPT/HCPCS: 97803; 99211

== ENCOUNTER → 2019-10-16 | Outpatient (CLI) | payer BC, OTHER ==
[2019-10-16 14:50] VITALS: BP 132/86; PULSE 82; RESP 16; TEMP 98.6; BMI 36.6
--- NOTE | 2019-10-16 15:03 | P.PN ---
Subjective Progress Note Date: 10/16/19 She feels great. She has anxiety. She has troubles sleeping at night under 6 hrs. Her mind is racing. NO GERD. She is taking Omeprazole. She has skin troubles with her thighs. Nystatin powder to be represcribed. Follow up 3 months. Eating 60+ grams of protein. Objective - Vital Signs Vital signs: Vital Signs Temp 98.6 F 10/16/19 14:47 Pulse 82 10/16/19 14:47 Resp 16 10/16/19 14:47 BP 132/86 10/16/19 14:47 Pulse Ox Intake & Output 10/15/19 10/16/19 10/16/19 18:59 06:59 18:59 Weight 96.615 kg
== END | disposition home or self-care (01) ==
LOC: BARWHC3 14:27
PROVIDERS: ATTEND Surgery Plastic and Reconstructive Surgery
DX: E66.01 Morbid (severe) obesity due to excess calories (principal); Z68.36 Body mass index [BMI] 36.0-36.9, adult
CPT/HCPCS: 99211

== ENCOUNTER → 2019-10-30 | Outpatient (CLI) | payer BC, OTHER ==
[2019-10-30 13:00] LABS: Partial Thromboplastin Time 24.8 sec (22.0-30.0); Prothrombin Time 10.1 sec (9.0-12.0)
[2019-10-30 13:13] LABS: HCT 49.3 % (34.0-46.0); HGB 15.2 gm/dL (11.4-16.0); Hypochromasia Slight; MCH 28.3 pg (25.0-35.0); MCHC 30.7 g/dL (31.0-37.0); Mean Platelet Volume 8.9; Platelet Count 355 k/uL (150-450); RBC 5.36 m/uL (3.80-5.40); WBC 14.1 k/uL (3.8-10.6)
[2019-10-30 18:10] LABS: % Iron Saturation 21.3 (12.00-45.00); African American GFR (CKD) 133.8 (60.0-200.0); Albumin 4.5 g/dL (3.80-4.90); Albumin/Globulin Ratio 1.96 (1.60-3.17); BUN/Creat Ratio 14.29 Ratio (12.00-20.00); Calcium 9.9 mg/dL (8.7-10.3); Chol/HDL Ratio 3.53; Globulin 2.3 g/dL (1.6-3.3); LDL Cholesterol,Calculated 95.2 mg/dL (0.0-131.0); Non-African American GFR(CKD) 115.4 (60.0-200.0); Phosphorus 4.2 mg/dL (2.4-5.1); Potassium 4.8 mmol/L (3.5-5.5); Total Bilirubin 0.4 mg/dL (0.3-1.2); Total Protein 6.8 g/dL (6.2-8.2); VLDL Calculation 23.8 mg/dL (5.00-40.00)
[2019-10-30 18:20] LABS: Ferritin 21.2 ng/mL (10.0-291.0)
[2019-10-30 18:21] LABS: Folate, Serum 7.3 ng/mL
[2019-10-30 19:50] LABS: Hemoglobin A1C 5.5 % (4.0-6.0)
[2019-11-01 08:11] LABS: Vit B1(Thiamine) 79 ug/L (38-122)
[2019-11-01 08:15] LABS: Vitamin A 53 ug/dL (38-106)
[2019-11-01 11:53] LABS: Zinc, Serum 72 ug/dL (60-130)
[2019-11-02 02:36] LABS: Selenium 99 mcg/L (63-160)
== END | disposition home or self-care (01) ==
LOC: LABWHC1 10:41
PROVIDERS: ATTEND Surgery Plastic and Reconstructive Surgery
DX: E21.1 Secondary hyperparathyroidism, not elsewhere classified (principal); E89.1 Postprocedural hypoinsulinemia; D50.9 Iron deficiency anemia, unspecified; K90.9 Intestinal malabsorption, unspecified; E55.9 Vitamin D deficiency, unspecified; K74.1 Hepatic sclerosis; N19 Unspecified kidney failure; K50.90 Crohn's disease, unspecified, without complications; E66.01 Morbid (severe) obesity due to excess calories
CPT/HCPCS: 36415; 80053; 80061; 82306; 82525; 82607; 82728; 82746; 83036; 83540; 83550; 83735; 83970; 84100; 84134; 84255; 84425; 84443; 84590; 84630; 85027; 85610; 85730

== ENCOUNTER → 2020-03-18 | Outpatient (CLI) | payer BC, OTHER ==
--- NOTE | 2020-03-18 16:58 | P.PN ---
Subjective Progress Note Date: 03/18/20 Left without being seen
== END | disposition home or self-care (01) ==
LOC: BARWHC3 14:53
PROVIDERS: ATTEND Surgery Plastic and Reconstructive Surgery
DX: Z53.9 Procedure and treatment not carried out, unspecified reason (principal)

== ENCOUNTER → 2020-07-08 | Outpatient (CLI) | payer BC, OTHER ==
[2020-07-08 13:32] VITALS: BP 128/81; PULSE 69; RESP 18; TEMP 98.5; BMI 36.0
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
[2020-07-08 15:18] LABS: HCT 42.2 % (34.0-46.0); HGB 13.8 gm/dL (11.4-16.0); MCH 29.1 pg (25.0-35.0); MCHC 32.6 g/dL (31.0-37.0); MCV 89.1 fL (80.0-100.0); Mean Platelet Volume 7.5; Platelet Count 373 k/uL (150-450); RBC 4.74 m/uL (3.80-5.40); RDW 12.9 % (11.5-15.5)
[2020-07-08 20:45] LABS: INR 0.94 (0.90-1.11); Partial Thromboplastin Time 27.4 sec (23.5-31.0); Prothrombin Time 10.3 sec (9.9-11.9)
[2020-07-09 01:24] LABS: Hemoglobin A1C 5.7 % (4.0-6.0)
[2020-07-09 03:52] LABS: % Iron Saturation 14.13 (12.00-45.00); African American GFR (CKD) 132.9 (60.0-200.0); Albumin 4.3 g/dL (3.80-4.90); Albumin/Globulin Ratio 1.43 (1.60-3.17); Anion Gap 9.4 mmol/L (4.00-12.00); BUN/Creat Ratio 15.71 Ratio (12.00-20.00); Calcium 10.2 mg/dL (8.7-10.3); Carbon Dioxide 27.6 mmol/L (21.6-31.8); Chol/HDL Ratio 2.52; Non-African American GFR(CKD) 114.6 (60.0-200.0); Phosphorus 4.5 mg/dL (2.4-5.1); Potassium 4.9 mmol/L (3.5-5.5); Total Bilirubin 0.3 mg/dL (0.3-1.2); Total Protein 7.3 g/dL (6.2-8.2)
[2020-07-09 04:03] LABS: Ferritin 10.6 ng/mL (10.0-291.0); Folate, Serum 13.6 ng/mL
[2020-07-09 15:46] LABS: Zinc, Serum 61 ug/dL (60-130)
[2020-07-10 13:59] LABS: Vit B1(Thiamine) 76 ug/L (38-122)
[2020-07-10 14:09] LABS: Vitamin A 46 ug/dL (38-106)
[2020-07-13 18:29] LABS: Selenium 122 mcg/L (63-160)
== END | disposition home or self-care (01) ==
LOC: BARWHC3 13:07
PROVIDERS: ATTEND Surgery Plastic and Reconstructive Surgery
DX: E66.01 Morbid (severe) obesity due to excess calories (principal); E11.22 Type 2 diabetes mellitus with diabetic chronic kidney disease; E28.2 Polycystic ovarian syndrome; E55.9 Vitamin D deficiency, unspecified; E78.1 Pure hyperglyceridemia; F32.9 Major depressive disorder, single episode, unspecified; K21.9 Gastro-esophageal reflux disease without esophagitis; K29.50 Unspecified chronic gastritis without bleeding; M16.0 Bilateral primary osteoarthritis of hip; M17.0 Bilateral primary osteoarthritis of knee; N25.81 Secondary hyperparathyroidism of renal origin; R13.10 Dysphagia, unspecified; Z56.0 Unemployment, unspecified; Z68.42 Body mass index [BMI] 45.0-49.9, adult; Z79.84 Long term (current) use of oral hypoglycemic drugs; Z79.899 Other long term (current) drug therapy; Z98.84 Bariatric surgery status
CPT/HCPCS: 84255; 84134; 84425; 80061; 80053; 82607; 82728; 82525; 82746; 83540; 83550; 83735; 84100; 84443; 84590; 84630; 85027; 85610; 85730; 82306; 83970; 83036; G0463; 99211

== ENCOUNTER → 2020-07-29 | Outpatient (CLI) | payer OTHER ==
[2020-07-29 14:43] VITALS: BP 130/83; PULSE 76; RESP 18; TEMP 98.2; BMI 36.2
--- NOTE | 2020-07-29 15:01 | P.PN ---
Subjective Progress Note Date: 07/29/20 Recommend Vitamin D supplement. Protein 75 grams. She eats carbs. Exercise described. Large muscle groups. Objective - Vital Signs Vital signs: Vital Signs Temp 98.2 F 07/29/20 14:40 Pulse 76 07/29/20 14:40 Resp 18 07/29/20 14:40 BP 130/83 07/29/20 14:40 Pulse Ox Intake & Output 07/28/20 07/29/20 07/29/20 18:59 06:59 18:59 Weight 95.708 kg
== END ==
LOC: BARWHC3 13:19
PROVIDERS: ATTEND Surgery Plastic and Reconstructive Surgery
DX: E66.01 Morbid (severe) obesity due to excess calories (principal)
CPT/HCPCS: 99211

== ENCOUNTER 2020-08-22 20:28 | Emergency (ER) | payer OTHER ==
[2020-08-22 20:42] VITALS: TEMP 98.5
--- NOTE | 2020-08-22 21:03 | ED ---
Chest Pain HPI - General Chief Complaint: Chest Pain Stated Complaint: Chest pain Time Seen by Provider: 08/22/20 20:55 Source: patient Mode of arrival: ambulatory Limitations: no limitations - History of Present Illness MD Complaint: chest pain Onset/Timin -: hour(s) Onset: during rest Pain Location: substernal Pain Radiation: none Severity: moderate Quality: dull Consistency: constant Improves With: nothing Worsens With: nothing Treatments Prior to Arrival: none - Related Data Home Medications Medication Instructions Recorded Confirmed Nystatin 100,000 Unit/gm Powd 1 applic TOPICAL BID PRN 03/14/19 07/29/20 [Mycostatin Powder] Stool Softner 2 tab PO DAILY PRN 07/15/19 07/29/20 Multivitamins, Thera [Multivitamin 1 tab PO DAILY 08/08/19 07/29/20 (formulary)] QUEtiapine [SEROquel] 125 mg PO HS 07/08/20 07/29/20 Sertraline [Zoloft] 100 mg PO DAILY 07/08/20 07/29/20 Previous Rx's Medication Instructions Recorded LORazepam [Ativan] 1 mg PO TID 3 Days #9 tab 08/22/20 Allergies Allergy/AdvReac Type Severity Reaction Status Date / Time No Known Allergies Allergy Verified 08/22/20 20:42 Review of Systems ROS Statement: Those systems with pertinent positive or pertinent negative responses have been documented in the HPI. ROS Other: All systems not noted in ROS Statement are negative. Constitutional: Denies: fever, chills Respiratory: Denies: cough, dyspnea Cardiovascular: Reports: chest pain. Denies: palpitations, orthopnea, edema, syncope Gastrointestinal: Denies: abdominal pain, nausea, vomiting, diarrhea Genitourinary: Denies: dysuria, hematuria Musculoskeletal: Denies: back pain Skin: Denies: rash Neurological: Denies: headache, weakness EKG Findings - EKG Results: EKG: interpreted by ROSSI, sinus rhythm (Rate 73 bpm), normal axis, normal QRS, normal ST/T, no acute changes - [place], Pacemaker, Normal: Normal tracing: normal tracing Past Medical History Past Medical History: Diabetes Mellitus, GERD/Reflux, Hypertension Additional Past Medical History / Comment(s): PCOS, History of Any Multi-Drug Resistant Organisms: None Reported Past Surgical History: No Surgical Hx Reported, Bariatric Surgery Additional Past Surgical History / Comment(s): wisdom teeth removal sleeve gastrectomy 3--20 Past Anesthesia/Blood Transfusion Reactions: No Reported Reaction Additional Past Anesthesia/Blood Transfusion Reaction / Comment(s): clausterphobia Past Psychological History: Depression Smoking Status: Former smoker Past Alcohol Use History: Occasional Past Drug Use History: None Reported - Past Family History Father Family Medical History: Hypertension Mother Family Medical History: Hypertension Additional Family Medical History / Comment(s): boarderline dm General Exam Limitations: no limitations General appearance: alert, in no apparent distress Head exam: Present: atraumatic, normocephalic Eye exam: Present: normal appearance. Absent: scleral icterus, conjunctival injection ENT exam: Present: normal oropharynx Neck exam: Present: normal inspection Respiratory exam: Present: normal lung sounds bilaterally. Absent: respiratory distress, wheezes, rales, rhonchi, stridor, chest wall tenderness Cardiovascular Exam: Present: regular rate, normal rhythm, normal heart sounds. Absent: systolic murmur, diastolic murmur, rubs, gallop GI/Abdominal exam: Present: soft. Absent: distended, tenderness, guarding, rebound, rigid, mass Extremities exam: Present: normal inspection, normal capillary refill. Absent: pedal edema, calf tenderness Back exam: Present: normal inspection. Absent: CVA tenderness (R), CVA tenderness (L) Neurological exam: Present: alert Skin exam: Present: warm, dry, intact, normal color. Absent: rash Course Vital Signs 08/22/20 08/22/20 20:40 23:04 Temperature 98.5 F Pulse Rate 72 70 Respiratory 20 16 Rate Blood Pressure 140/92 129/84 O2 Sat by Pulse 99 99 Oximetry Disposition Clinical Impression: Chest pain, Anxiety Disposition: HOME SELF-CARE Condition: Good Instructions (If sedation given, give patient instructions): Chest Pain (ED), Anxiety (ED) Prescriptions: LORazepam [Ativan] 1 mg PO TID 3 Days #9 tab Is patient prescribed a controlled substance at d/c from ED?: No Referrals: Nagi Francois MD [REFERRING] - 1-2 days
[2020-08-22] MEDS: MAG HYDROX/AL HYDROX/SIMETH 30 ML, HYOSCYAMINE ELIXIR 10 ML, LIDOCAINE VISCOUS 2% 10 ML PO STA ×3 (21:20)
[2020-08-22 21:25] LABS: Basophils # (A) 0.1 k/uL (0-0.2); Basophils % (A) 1 %; Eosinophils # (A) 0.4 k/uL (0-0.7); Eosinophils % (A) 3 %; HGB 13.3 gm/dL (11.4-16.0); Lymphocytes # (A) 4.3 k/uL (1.0-4.8); Lymphocytes % (A) 32 %; MCH 27.5 pg (25.0-35.0); MCHC 32.5 g/dL (31.0-37.0); MCV 84.8 fL (80.0-100.0); Mean Platelet Volume 7.7; Monocytes # (A) 0.9 k/uL (0-1.0); Monocytes % (A) 7 %; Neutrophils # (A) 7.7 k/uL (1.3-7.7); Neutrophils % (A) 56 %; Platelet Count 392 k/uL (150-450); RBC 4.83 m/uL (3.80-5.40); RDW 13.3 % (11.5-15.5); WBC 13.7 k/uL (3.8-10.6)
[2020-08-22 21:38] LABS: ALT 15 U/L (4-34); AST 23 U/L (14-36); African American GFR (CKD) >90 (>60 ml/min/1.73 sqM); Albumin 4.5 g/dL (3.5-5.0); Alkaline Phosphatase 70 U/L (38-126); Anion Gap 10 mmol/L; Blood Urea Nitrogen 13 mg/dL (7-17); Calcium 9.8 mg/dL (8.4-10.2); Carbon Dioxide 25 mmol/L (22-30); Chloride 102 mmol/L (98-107); Glucose 84 mg/dL (74-99); Non-African American GFR(CKD) >90 (>60 ml/min/1.73 sqM); Potassium 4.5 mmol/L (3.5-5.1); Sodium 137 mmol/L (137-145); Total Bilirubin 0.4 mg/dL (0.2-1.3); Total Protein 7.5 g/dL (6.3-8.2)
[2020-08-22 21:40] LABS: INR 0.9 (<1.2); Partial Thromboplastin Time 23.6 sec (22.0-30.0); Prothrombin Time 9.8 sec (9.0-12.0)
[2020-08-22 21:43] LABS: D-Dimer <0.17 mg/L FEU (<0.60)
--- NOTE | 2020-08-22 22:22 | XR ---
EXAMINATION TYPE: XR chest 2V DATE OF EXAM: 08/22/2020 COMPARISON: 07/23/2018 HISTORY: Chest pain TECHNIQUE: FINDINGS: Heart and mediastinum are normal. Lungs are clear. Diaphragm is normal. Bony thorax appears normal. IMPRESSION: Normal chest. No change.
[2020-08-22] MEDS: LORazepam 2 MG/ML INJ IV STA (23:01)
[2020-08-22 23:06] VITALS: BP 129/84; PULSE 70; RESP 16
== END 2020-08-22 23:54 | disposition home or self-care (01) ==
LOC: EC 20:28
DX: R07.2 Precordial pain (principal); F41.9 Anxiety disorder, unspecified; E11.9 Type 2 diabetes mellitus without complications; K21.9 Gastro-esophageal reflux disease without esophagitis; I10 Essential (primary) hypertension; F32.9 Major depressive disorder, single episode, unspecified; Z87.891 Personal history of nicotine dependence; Z79.899 Other long term (current) drug therapy
CPT/HCPCS: 36415; 93005; 85379; 80053; 83735; 84484; 85025; 85610; 85730; 81025; 71046; 99285; 96374; J2060

== ENCOUNTER → 2023-06-21 | Outpatient (CLI) | payer OTHER ==
[2023-06-21 15:20] LABS: Basophils # (A) 0.08 X 10*3/uL (0.00-0.10); Basophils % (A) 0.8 %; Eosinophils % (A) 2.9 %; HCT 42.3 % (37.2-46.3); HGB 13.3 g/dL (12.0-15.0); Lymphocytes # (A) 1.63 X 10*3/uL (0.90-5.00); Lymphocytes % (A) 15.9 %; MCH 26.7 pg (27.0-32.0); MCHC 31.4 g/dL (32.0-37.0); MCV 84.9 FL (80.0-97.0); Mean Platelet Volume 11.2 FL (9.5-12.2); Monocytes # (A) 1.14 X 10*3/uL (0.20-1.00); Monocytes % (A) 11.2 %; NRBC Per 100 WBC 0 X 10*3/uL (0.00-0.01); Neutrophils # (A) 7.02 X 10*3/uL (1.80-7.70); Neutrophils % (A) 68.7 %; Platelet Count 392 X 10*3/uL (140-440); RBC 4.98 X 10*6/uL (4.10-5.20); RDW 13.3 % (11.5-14.5); WBC 10.22 X 10*3/uL (4.50-10.00)
[2023-06-21 16:27] LABS: Hepatitis A Antibody IgM Nonreactive; Hepatitis B Core IgM Nonreactive; Hepatitis B Surface Antigen Nonreactive; Hepatitis C IgG Antibody Nonreactive
[2023-06-21 16:43] LABS: % Iron Saturation 7.48 (12.00-45.00); ALT 14 U/L (8-44); AST 16 U/L (13-35); Albumin 4.4 g/dL (3.8-4.9); Albumin/Globulin Ratio 1.47 Ratio (1.60-3.17); Alkaline Phosphatase 76 U/L (41-126); Blood Urea Nitrogen 8.4 mg/dL (9.0-27.0); Calcium 9.8 mg/dL (8.7-10.3); Carbon Dioxide 22.1 mmol/L (21.6-31.8); Chloride 103 mmol/L (96-109); Chol/HDL Ratio 3.21 Ratio; Glucose 96 mg/dL (70-110); Iron 35 UG/DL (50-170); LDL Cholesterol,Calculated 114.5 mg/dL (0.0-131.0); Potassium 4.6 mmol/L (3.5-5.5); Sodium 138 mmol/L (135-145); Total Bilirubin <0.2 mg/dL (0.3-1.2); Total Iron Binding Capacity 468 UG/DL (228-460); Total Protein 7.4 g/dL (6.2-8.2); VLDL Calculation 14.94 mg/dL (5.00-40.00)
[2023-06-21 18:10] LABS: HIV 2 AB Non-Reactive (Non-Reactive); HIV AB P24 Non-Reactive (Non-Reactive); HIV P24 AG Non-Reactive (Non-Reactive)
== END | disposition home or self-care (01) ==
LOC: LABWHC1 09:11
PROVIDERS: ATTEND Internal Medicine
DX: Z00.00 Encounter for general adult medical examination without abnormal findings (principal); K21.9 Gastro-esophageal reflux disease without esophagitis
CPT/HCPCS: 36415; 80053; 80061; 80074; 82306; 82607; 82652; 82746; 83540; 83550; 85025; 87390

== ENCOUNTER → 2023-06-24 | Outpatient (CLI) | payer OTHER | END | disposition home or self-care (01) | LOC: LABWHC1 08:33 | PROVIDERS: ATTEND Family Medicine | DX: E55.9 Vitamin D deficiency, unspecified (principal) | CPT/HCPCS: 36415; 83970 ==